=== PATIENT | female | born 1980 ===

== ENCOUNTER 2016-12-05 13:10 | Inpatient (IN) | payer MEDICAID ==
[2016-12-05 13:10] VITALS: BMI 31.8
[2016-12-05 13:18] VITALS: O2SAT 99
--- NOTE | 2016-12-05 13:37 | ED PDOC ---
- ECG O2 Sat by Pulse Oximetry: 99
--- NOTE | 2016-12-05 13:42 | ED PDOC ---
HPI: Psych/Substance Abuse Time Seen by Provider: 12/05/16 13:16 Chief Complaint (Nursing): Anxiety Chief Complaint (Provider): Anxiety History Per: Patient Additional Complaint(s): Pt. states earlier today she was walking when she suddenly developed "anxiety." Reports feeling very anxious and is unable to control her emotions and crying. Pt. states she did not take her Xanax as her psychiatrist Dr. Braxton discontinued it but she has been taking her Seroquel and her thyroid medication. Pt. is uncertain as to the source of her anxiety. Denies SI/HI, hallucinations, chest pain, SOB, numbness, tingling, fever. Past Medical History Reviewed: Historical Data, Nursing Documentation, Vital Signs Vital Signs: Last Vital Signs Temp Pulse 78 12/05/16 13:12 Resp 18 12/05/16 13:12 BP 107/76 12/05/16 13:12 Pulse Ox 99 12/05/16 13:12 - Medical History PMH: Anxiety (since 12 years old), Depression (since 12 years old), HTN, Hypothyroidism Denies: Diabetes, Hepatitis, HIV, Seizures, Sexually Transmitted Disease - Family History Family History: States: No Known Family Hx - Immunization History Hx Tetanus Toxoid Vaccination: No Hx Influenza Vaccination: No Hx Pneumococcal Vaccination: No - Home Medications Home Medications: Ambulatory Orders Medication Instructions Recorded Aspirin [Ecotrin] 81 mg PO DAILY #30 tabec 10/22/16 Atenolol [Tenormin] 25 mg PO DAILY #30 tablet 10/22/16 Divalproex [Depakote ER] 250 mg PO BID #60 ter 10/22/16 Escitalopram [Lexapro] 5 mg PO DAILY #30 tab 10/22/16 Gabapentin [Neurontin] 100 mg PO BID #60 capsule 10/22/16 Levothyroxine Sodium [Levoxyl] 137 mcg PO DAILY #30 tablet 10/22/16 Mirtazapine [Remeron] 7.5 mg PO HS #15 tab 10/22/16 QUEtiapine [SEROquel] 50 mg PO HS #30 tab 10/22/16 QUEtiapine [Seroquel] 100 mg PO BID #60 tab 10/22/16 hydrOXYzine Pamoate [Vistaril] 25 mg PO TID PRN #90 cap 02/28/17 - Allergies Allergies/Adverse Reactions: Allergies Allergy/AdvReac Type Severity Reaction Status Date / Time No Known Allergies Allergy Verified 10/23/16 14:51 Review of Systems ROS Statement: Except As Marked, All Systems Reviewed And Found Negative Cardiovascular: Positive for: Palpitations Psych: Positive for: Anxiety Physical Exam - Reviewed Nursing Documentation Reviewed: Yes Vital Signs Reviewed: Yes - Physical Exam Appears: Positive for: Well, Non-toxic, In Acute Distress (appears very anxious) Head Exam: Positive for: ATRAUMATIC, NORMAL INSPECTION, NORMOCEPHALIC Skin: Positive for: Normal Color, Warm, DRY Eye Exam: Positive for: EOMI, Normal appearance, PERRL ENT: Positive for: Normal ENT Inspection Neck: Positive for: Normal, Painless ROM Cardiovascular/Chest: Positive for: Tachycardia. Negative for: Murmur Respiratory: Positive for: CNT, Normal Breath Sounds Gastrointestinal/Abdominal: Positive for: Normal Exam, Soft. Negative for: Tenderness Back: Positive for: Normal Inspection Extremity: Positive for: Normal ROM Neurologic/Psych: Positive for: Alert, Oriented, Mood/Affect (very anxious but cooperative) - Laboratory Results Result Diagrams: 12/05/16 14:24 12/05/16 14:24 - ECG ECG: Positive for: Interpreted By Me ECG Rhythm: Positive for: Sinus Rhythm. Negative for: ST/T Changes Rate: 118 O2 Sat by Pulse Oximetry: 99 - Progress ED Course And Treament: Xanax 1mg PO given. Labs ordered. Pt. evaluated by crisis and arrangements made for admission. Disposition - Clinical Impression Clinical Impression: Anxiety - Patient ED Disposition Is Patient to be Admitted: Yes - Disposition Disposition Time: 15:20 Condition: STABLE - Pt Status Changed To: Hospital Disposition Of: Inpatient - Admit Certification Admit to Inpatient:: After my assessment, the patient will require hospitalization for at least two midnights. This is because of the severity of symptoms shown, intensity of services needed, and/or the medical risk in this patient being treated as an outpatient.
[2016-12-05 14:34] LABS: BASO # 0.1 K/uL (0.0-0.2); BASO % 0.9 % (0.0-2.0); EOS # 0.1 K/uL (0.0-0.7); EOS % 1.2 % (0.0-4.0); HEMATOCRIT 36.8 % (34.0-47.0); LYMPH # 1.5 K/uL (1.0-4.3); LYMPH % 18.3 % (20.0-40.0); MEAN CELL VOLUME 82.2 fl (81.0-99.0); MEAN CORPUSCULAR HEMOGLOBIN 27.9 pg (27.0-31.0); MEAN PLATELET VOLUME 7.3 fl (7.2-11.7); MONO # 0.5 K/uL (0.0-0.8); MONO % 6.1 % (0.0-10.0); NEUT # 6.1 K/uL (1.8-7.0); NEUT % 73.5 % (50.0-75.0); NRBC % 0.1 % (0.0-0.0); RED CELL DISTRIBUTION WIDTH 13.8 % (11.5-14.5); WHITE BLOOD COUNT 8.3 K/uL (4.8-10.8)
[2016-12-05 14:45] LABS: RBC URINE 2 /hpf (0-3); URINE BACTERIA RARE (<OCC); URINE BILIRUBIN NEGATIVE (NEGATIVE); URINE BLOOD NEGATIVE (NEGATIVE); URINE COLOR YELLOW (YELLOW); URINE GLUCOSE (UA) NEG (Normal); URINE KETONE TRACE mg/dL (NEGATIVE); URINE LEUKOCYTE ESTERASE TRACE Leu/uL (Negative); URINE PROTEIN 30 mg/dL (NEGATIVE); URINE UROBILINOGEN 0.2-1.0 mg/dL (0.2-1.0); WBC URINE 4 /hpf (0-5)
[2016-12-05 14:52] LABS: ALB/GLOB RATIO 1.5 (1.0-2.1); ALCOHOL SERUM < 10 mg/dl (0-10); ALKALINE PHOSPHATASE 115 U/L (38-126); ALT/SGPT 22 U/L (9-52); AST/SGOT 22 U/L (14-36); BILIRUBIN,TOTAL 0.4 mg/dl (0.2-1.3); BLOOD UREA NITROGEN 19 mg/dl (7-17); CALCIUM 9.7 mg/dL (8.4-10.2); CARBON DIOXIDE 21 mmol/L (22-30); CHLORIDE 104 mmol/L (98-107); GFR AFRICAN-AMERICAN > 60; GLUCOSE,RANDOM 97 mg/dL (65-105); POTASSIUM 3.9 MMOL/L (3.6-5.0); SODIUM 142 mmol/l (132-148); TOTAL PROTEIN 7.9 G/DL (6.3-8.2)
[2016-12-05 15:29] LABS: THYROID STIMULATING HORMONE 1.92 mIU/ML (0.46-4.68)
--- NOTE | 2016-12-05 15:57 | RAD ---
HISTORY: clearance COMPARISON: 08/06/2016. FINDINGS: LUNGS: No active pulmonary disease. PLEURA: No significant pleural effusion identified, no pneumothorax apparent. CARDIOVASCULAR: Normal. OSSEOUS STRUCTURES: No significant abnormalities. VISUALIZED UPPER ABDOMEN: Normal. OTHER FINDINGS: None. IMPRESSION: No active disease. No significant interval change compared to the prior examination(s).
[2016-12-05] MEDS ORDERED: Magnesium Hydroxide Susp 30 ml UD PO PRN (18:01)
[2016-12-05] MEDS ORDERED: Alum-Mag Hydrox-Simethicone Susp (30 mL) PO PRN (18:01)
[2016-12-05] MEDS ORDERED: DiphenhydrAMINE 50 mg/ml Inj IM PRN (18:01)
[2016-12-05] MEDS ORDERED: Pneumococcal 23-Valent Vaccine IM ONE (18:51)
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
[2016-12-06 10:33] LABS: BASO % 0.6 % (0.0-2.0); EOS # 0.2 K/uL (0.0-0.7); EOS % 2.7 % (0.0-4.0); HEMATOCRIT 37.1 % (34.0-47.0); LYMPH # 1.4 K/uL (1.0-4.3); LYMPH % 19.2 % (20.0-40.0); MEAN CELL VOLUME 82.9 fl (81.0-99.0); MEAN CORPUSCULAR HEMOGLOBIN 28.2 pg (27.0-31.0); MEAN CORPUSCULAR HGB CONC 34.1 g/dL (33.0-37.0); MEAN PLATELET VOLUME 7.1 fl (7.2-11.7); MONO # 0.5 K/uL (0.0-0.8); MONO % 6.2 % (0.0-10.0); NEUT # 5.3 K/uL (1.8-7.0); NEUT % 71.3 % (50.0-75.0); NRBC % 0.1 % (0.0-0.0); RED CELL DISTRIBUTION WIDTH 14.2 % (11.5-14.5); WHITE BLOOD COUNT 7.4 K/uL (4.8-10.8)
[2016-12-06 10:45] LABS: ALB/GLOB RATIO 1.3 (1.0-2.1); ALKALINE PHOSPHATASE 97 U/L (38-126); ALT/SGPT 22 U/L (9-52); AST/SGOT 17 U/L (14-36); BILIRUBIN,TOTAL 0.6 mg/dl (0.2-1.3); BLOOD UREA NITROGEN 17 mg/dl (7-17); CALCIUM 8.8 mg/dL (8.4-10.2); CARBON DIOXIDE 24 mmol/L (22-30); CHLORIDE 104 mmol/L (98-107); CHOLESTEROL 154 mg/dL (0-199); GFR AFRICAN-AMERICAN > 60; GLUCOSE,RANDOM 98 mg/dL (65-105); SODIUM 142 mmol/l (132-148); TOTAL PROTEIN 7.4 G/DL (6.3-8.2)
[2016-12-06 11:02] LABS: T4 7.46 ug/dl (5.5-11.0)
[2016-12-06 11:16] LABS: THYROID STIMULATING HORMONE 1.99 mIU/ML (0.46-4.68)
[2016-12-06] MEDS: Levothyroxine 125 MCG TAB PO SCH (11:39)
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
[2016-12-07] MEDS: Levothyroxine 125 MCG TAB PO SCH (08:30)
--- NOTE | 2016-12-07 11:13 | PCM.PYCHPN ---
Psychiatric Progress Note - Psychiatric Progress Note Patient seen today, length of contact: Patient evaluated, case discussed with team, chart reviewed Patient Chief Complaint: "I'm feeling anxious" Problems Identified/Issues Discussed: Patient reports that she continues to feel depression and very anxious. She denies adverse effects to the recent increase in Prozac. She was able to contract for safety. NO AH/VH/paranoia/delusions. She engages appropriately with staff and peers. She has been observed to be tearful on the unit with intermittent episodes of crying. Medication Change: No Medical Record Reviewed: Yes Mental Status Examination - Cognitive Function Orientation: Person, Place, Situation, Time Memory: Intact Attention: WNL Concentration: WNL Association: WNL Fund of Knowledge: [facility] Decription of patient's judgement and insights: Fair I/J - Mood Mood: Depressed, Anxious - Affect Affect: Constricted, Depressed - Speech Speech: Appropriate - Formal Thought Process Formal Thought Process: No Impairment Psychotic Thoughts and Behaviors: NO AH/VH/paranoia/delusions - Suicidal Ideation Suicidal Ideation: No - Homicidal Ideation Homicidal Ideation: No Goal/Treatment Plan - Goal/Treatment Plan Need for Continued Stay: Remain at risks for inpatient hospitalization, Severe depression anxiety Progress Toward Problem(s) and Goals/Treatment Plan: 36 yo female with history of multiple psychiatric admission, p/w worsening depression and anxiety, likely has Major Depressive Disorder, Generalized Anxiety Disorder, and Panic attacks. She would benefit from continued inpatient admission for treatment and stabilization. -Continue Prozac 20 mg PO Daily -Continue Seroquel 100 mg PO HS, will consider titrating if necessary -Continue Cogentin 2 mg PO HS -Medicine consult appreciated -No 1:1 needed at this time as the patient is able to contract for [employer] Estimated Date of D/C: 12/10/16 - Smoking Cessation Smoking Cessation Initiated: No
--- NOTE | 2016-12-08 09:02 | PCM.PYCHPN ---
Psychiatric Progress Note - Psychiatric Progress Note Patient seen today, length of contact: Patient evaluated, case discussed with team, chart reviewed Patient Chief Complaint: "I'm feeling anxious" Problems Identified/Issues Discussed: Patient reports that she continues to feel very anxious. She reports that she did not sleep well overnight. Supportive therapy provided. She denies adverse effects to the recent increase in Prozac. NO AH/VH/paranoia/delusions. She engages appropriately with staff and peers. She is less labile on the unit. Medication Change: No Medical Record Reviewed: Yes Mental Status Examination - Cognitive Function Orientation: Person, Place, Situation, Time Memory: Intact Attention: WNL Concentration: WNL Association: WNL Fund of Knowledge: [facility] Decription of patient's judgement and insights: Fair I/J - Mood Mood: Depressed, Anxious - Affect Affect: Constricted - Speech Speech: Appropriate - Formal Thought Process Formal Thought Process: No Impairment Psychotic Thoughts and Behaviors: No AH/VH/paranoia/delusions - Suicidal Ideation Suicidal Ideation: No - Homicidal Ideation Homicidal Ideation: No Goal/Treatment Plan - Goal/Treatment Plan Need for Continued Stay: Remain at risks for inpatient hospitalization, Severe depression anxiety Progress Toward Problem(s) and Goals/Treatment Plan: 36 yo female with history of multiple psychiatric admission, p/w worsening depression and anxiety, likely has Major Depressive Disorder, Generalized Anxiety Disorder, and Panic attacks. She would benefit from continued inpatient admission for treatment and stabilization. -Continue Prozac 20 mg PO Daily -Continue Seroquel 100 mg PO HS -Continue Cogentin 2 mg PO HS -Medicine consult appreciated -No 1:1 needed at this time as the patient is able to contract for [employer] Estimated Date of D/C: 12/10/16
[2016-12-08] MEDS: Levothyroxine 125 MCG TAB PO SCH (09:19)
[2016-12-09] MEDS: Levothyroxine 125 MCG TAB PO SCH (08:28)
--- NOTE | 2016-12-09 10:17 | PCM.PYCHPN ---
Psychiatric Progress Note - Psychiatric Progress Note Patient seen today, length of contact: Patient evaluated, case discussed with team, chart reviewed Patient Chief Complaint: "I'm feeling less anxious" Problems Identified/Issues Discussed: Patient reports that her anxiety and depression are improving. No acute medical complaints. Supportive therapy provided. She denies adverse effects to medications. NO AH/VH/paranoia/delusions. She engages appropriately with staff and peers. She is less labile on the unit. Medication Change: No Medical Record Reviewed: Yes Mental Status Examination - Cognitive Function Orientation: Person, Place, Situation, Time Memory: Intact Attention: WNL Concentration: WNL Association: WN Fund of Knowledge: [facility] Decription of patient's judgement and insights: Fair I/J - Mood Mood: Anxious - Affect Affect: Broad - Speech Speech: Appropriate - Formal Thought Process Formal Thought Process: No Impairment Psychotic Thoughts and Behaviors: NO AH/VH/paranoia - Suicidal Ideation Suicidal Ideation: No - Homicidal Ideation Homicidal Ideation: No Goal/Treatment Plan - Goal/Treatment Plan Need for Continued Stay: Severe depression anxiety Progress Toward Problem(s) and Goals/Treatment Plan: 36 yo female with history of multiple psychiatric admission, p/w worsening depression and anxiety, likely has Major Depressive Disorder, Generalized Anxiety Disorder, and Panic attacks. She would benefit from continued inpatient admission for treatment and stabilization. -Continue Prozac 20 mg PO Daily -Continue Seroquel 100 mg PO HS -Continue Cogentin 2 mg PO HS -Medicine consult appreciated -Likely discharge tomorrow if patient continues to improve clinically. Estimated Date of D/C: 12/10/16
[2016-12-09 16:23] VITALS: RESP 20
[2016-12-10 05:55] VITALS: BP 110/76; TEMP 97.2
[2016-12-10] MEDS: Levothyroxine 125 MCG TAB PO SCH (08:24)
[2016-12-10 08:26] VITALS: PULSE 87
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
== END 2016-12-10 16:45 | disposition home or self-care (01) | DRG 426 ==
LOC: H.ER 13:10 → H.ERHOLD 15:33 → H.STEP 17:13
PROVIDERS: ADMIT Psychiatry & Neurology Psychiatry; ATTEND Psychiatry & Neurology Psychiatry
PROC: 3E0234Z Introduction of Serum, Toxoid and Vaccine into Muscle, Percutaneous Approach (ICD-10-PCS; principal; 2016-12-05)
PROC: GZHZZZZ Group Psychotherapy (ICD-10-PCS; 2016-12-05)
PROC: GZ51ZZZ Individual Psychotherapy, Behavioral (ICD-10-PCS; 2016-12-05)
DX: F32.9 Major depressive disorder, single episode, unspecified (principal); G40.909 Epilepsy, unspecified, not intractable, without status epilepticus; I10 Essential (primary) hypertension; F41.0 Panic disorder [episodic paroxysmal anxiety]; Z87.891 Personal history of nicotine dependence; E03.9 Hypothyroidism, unspecified; Z23 Encounter for immunization

== ENCOUNTER 2016-12-24 12:34 | Inpatient (IN) | payer MEDICAID ==
[2016-12-24 12:34] VITALS: BMI 31.8
--- NOTE | 2016-12-24 12:50 | ED PDOC ---
HPI: Psych/Substance Abuse Time Seen by Provider: 12/24/16 14:07 Chief Complaint (Nursing): Psychiatric Evaluation Chief Complaint (Provider): Psychiatric Evaluation History Per: Patient History/Exam Limitations: no limitations Onset/Duration Of Symptoms: Hrs (Prior to Arrival) Additional Complaint(s): 12:37 Keisha Tripathi, 36 year old female presents to the ED on 12/24/16, complaining of feeling very anxious and is crying. The patient was picked up from her mother's job prior to arrival and states that she has been taking her medications, without relief. The patient denies any suicidal or homicidal ideations or hallucinations. Of note, the patient was previously seen and admitted last month. PMD: Jesus Olvera MD Past Medical History Reviewed: Historical Data, Nursing Documentation, Vital Signs Vital Signs: Last Vital Signs Temp 98.1 F 12/24/16 12:36 Pulse 102 H 12/24/16 12:36 Resp 30 H 12/24/16 12:36 BP 127/87 12/24/16 12:36 Pulse Ox 100 12/24/16 12:36 - Medical History PMH: Anxiety (since 12 years old), Depression (since 12 years old), HTN, Hypothyroidism Denies: Diabetes, Hepatitis, HIV, Seizures, Sexually Transmitted Disease - Family History Family History: States: Unknown Family Hx - Immunization History Hx Tetanus Toxoid Vaccination: No Hx Influenza Vaccination: No Hx Pneumococcal Vaccination: No - Home Medications Home Medications: Ambulatory Orders Medication Instructions Recorded Aspirin [Ecotrin] 81 mg PO DAILY 12/05/16 Atenolol [Tenormin] 25 mg PO DAILY 12/05/16 Gabapentin [Neurontin] 200 mg PO TID 12/05/16 Levothyroxine [Synthroid] 125 mcg PO DAILY 12/05/16 Benztropine [Cogentin] 2 mg PO HS #30 tab 12/10/16 FLUoxetine [Prozac] 20 mg PO DAILY #30 cap 12/10/16 QUEtiapine [Seroquel] 100 mg PO HS #30 tab 12/10/16 - Allergies Allergies/Adverse Reactions: Allergies Allergy/AdvReac Type Severity Reaction Status Date / Time No Known Allergies Allergy Verified 10/23/16 14:51 Review of Systems Eyes: Positive for: Other (crying) Psych: Positive for: Anxiety. Negative for: Suicidal ideation, Other (no homicidal ideation or hallucinations) Physical Exam - Reviewed Nursing Documentation Reviewed: Yes Vital Signs Reviewed: Yes - Physical Exam Appears: Positive for: Non-toxic Head Exam: Positive for: ATRAUMATIC, NORMOCEPHALIC Skin: Positive for: Normal Color, Warm, Dry Eye Exam: Positive for: Other (Crying) Neck: Positive for: Normal Cardiovascular/Chest: Positive for: Regular Rate, Rhythm, Chest Non Tender Respiratory: Positive for: Normal Breath Sounds. Negative for: Respiratory Distress Gastrointestinal/Abdominal: Positive for: Normal Exam, Soft. Negative for: Tenderness Neurologic/Psych: Positive for: Alert, Oriented (x3) - Laboratory Results Result Diagrams: 12/24/16 13:30 12/24/16 13:30 - ECG ECG Rhythm: Positive for: Sinus Rhythm (Normal) Rate: 83 O2 Sat by Pulse Oximetry: 100 (RA) Pulse Ox Interpretation: Normal Medical Decision Making Medical Decision Makin:37 Initial Impression: Patient crying and anxious but with normal breathing Initial Plan: * Crisis Evaluation * pt will be admitted for anxiety under MD Minda * Pt is medically stable at this time for admission Scribe~Attestation: Documented by Bharti Rodrigues, acting as a~zafaribe~for Bridget Alonso PA-C. Provider~Scribe~Attestation: All medical record entries made by the~Arpitwere at my direction and personally dictated by me. I have reviewed the chart and agree that the record accurately reflects my personal performance of the history, physical exam, medical decision making, and the department course for this patient. I have also personally directed, reviewed, and agree with the discharge instructions and disposition. Disposition - Clinical Impression Clinical Impression: Anxiety - Patient ED Disposition Is Patient to be Admitted: Yes - Disposition Disposition Time: 14:09 Condition: STABLE - Pt Status Changed To: Hospital Disposition Of: Inpatient - Admit Certification Admit to Inpatient:: After my assessment, the patient will require hospitalization for at least two midnights. This is because of the severity of symptoms shown, intensity of services needed, and/or the medical risk in this patient being treated as an outpatient.
[2016-12-24 13:47] LABS: BASO # 0.1 K/uL (0.0-0.2); BASO % 0.6 % (0.0-2.0); EOS # 0.1 K/uL (0.0-0.7); EOS % 1.5 % (0.0-4.0); HEMATOCRIT 36.7 % (34.0-47.0); LYMPH # 1.7 K/uL (1.0-4.3); LYMPH % 19.9 % (20.0-40.0); MEAN CELL VOLUME 81.8 fl (81.0-99.0); MEAN CORPUSCULAR HEMOGLOBIN 27.8 pg (27.0-31.0); MEAN PLATELET VOLUME 7.7 fl (7.2-11.7); MONO # 0.4 K/uL (0.0-0.8); MONO % 4.9 % (0.0-10.0); NEUT # 6.2 K/uL (1.8-7.0); NEUT % 73.1 % (50.0-75.0); NRBC % 0.1 % (0.0-0.0); RED CELL DISTRIBUTION WIDTH 14.4 % (11.5-14.5); WHITE BLOOD COUNT 8.5 K/uL (4.8-10.8)
[2016-12-24 14:01] LABS: ALB/GLOB RATIO 1.2 (1.0-2.1); ALCOHOL SERUM < 10 mg/dl (0-10); ALKALINE PHOSPHATASE 98 U/L (38-126); ALT/SGPT 23 U/L (9-52); AST/SGOT 23 U/L (14-36); BILIRUBIN,TOTAL 0.7 mg/dl (0.2-1.3); BLOOD UREA NITROGEN 16 mg/dl (7-17); CALCIUM 9.2 mg/dL (8.4-10.2); CARBON DIOXIDE 23 mmol/L (22-30); CHLORIDE 105 mmol/L (98-107); GFR AFRICAN-AMERICAN > 60; GLUCOSE,RANDOM 113 mg/dL (65-105); POTASSIUM 3.8 MMOL/L (3.6-5.0); SODIUM 139 mmol/l (132-148); TOTAL PROTEIN 7.6 G/DL (6.3-8.2)
[2016-12-24 14:04] LABS: RBC URINE 3 /hpf (0-3); URINE BACTERIA MOD (<OCC); URINE BILIRUBIN NEGATIVE (NEGATIVE); URINE BLOOD NEGATIVE (NEGATIVE); URINE COLOR YELLOW (YELLOW); URINE GLUCOSE (UA) NEG (Normal); URINE KETONE NEGATIVE (NEGATIVE); URINE LEUKOCYTE ESTERASE MOD Leu/uL (Negative); URINE PROTEIN NEGATIVE (NEGATIVE); URINE UROBILINOGEN 0.2-1.0 mg/dL (0.2-1.0); WBC URINE 14 /hpf (0-5)
[2016-12-24] MEDS ORDERED: Alum-Mag Hydrox-Simethicone Susp (30 mL) PO PRN (16:40)
[2016-12-24] MEDS ORDERED: Magnesium Hydroxide Susp 30 ml UD PO PRN (16:40)
--- NOTE | 2016-12-25 01:09 | CP.PCM.CON ---
History of Present Illness - History of Present Illness History of Present Illness: 36 yo female admitted to psyche unit because of severe anxiety. Review of Systems - Review of Systems All systems: reviewed and no additional remarkable complaints except (aside from those mentioned above 12 point system review were negative by me) Past Patient History - Infectious Disease Hx of Infectious Diseases: None - Past Social History Smoking Status: Never Smoked Chewing Tobacco Use: No Cigar Use: No Alcohol: None - CARDIAC Hx Cardiac Disorders: No - PULMONARY Hx Respiratory Disorders: No Hx Tuberculosis: No - NEUROLOGICAL Hx Neurological Disorder: No Hx Seizures: No - HEENT Hx HEENT Problems: No - RENAL Hx Chronic Kidney Disease: No - ENDOCRINE/METABOLIC Hx Hypothyroidism: Yes - HEMATOLOGICAL/ONCOLOGICAL Hx Blood Disorders: No Hx Human Immunodeficiency Virus (HIV): No - INTEGUMENTARY Hx Dermatological Problems: No - MUSCULOSKELETAL/RHEUMATOLOGICAL Hx Musculoskeletal Disorders: No - GASTROINTESTINAL Hx Gastrointestinal Disorders: No - GENITOURINARY/GYNECOLOGICAL Hx Genitourinary Disorders: No Hx Sexually Transmitted Disorders: No - PSYCHIATRIC Hx Substance Use: No - SURGICAL HISTORY Hx Surgeries: No Other/Comment: right thumb surgery/ trigger finger - ANESTHESIA Hx Anesthesia: Yes Hx Anesthesia Reactions: No Meds Allergies/Adverse Reactions: Allergies Allergy/AdvReac Type Severity Reaction Status Date / Time No Known Allergies Allergy Verified 10/23/16 14:51 - Medications Medications: Current Medications Acetaminophen (Tylenol 325mg Tab) 650 mg PO Q4 PRN PRN Reason: Pain, moderate (4-7) Al Hydrox/Mg Hydrox/Simethicone (Maalox Plus 30 Ml) 30 ml PO Q4 PRN PRN Reason: Dyspepsia Aspirin (Ecotrin) 81 mg PO DAILY [facility] Atenolol (Tenormin) 25 mg PO DAILY [facility] Benztropine Mesylate (Cogentin) 2 mg PO HS [facility] Last Admin: 12/24/16 21:27 Dose: 2 mg Diphenhydramine HCl (Benadryl) 50 mg PO Q6 PRN PRN Reason: Agitation Fluoxetine HCl (Prozac) 20 mg PO DAILY [facility] Gabapentin (Neurontin) 200 mg PO TID [facility] Last Admin: 12/24/16 17:18 Dose: 200 mg Haloperidol (Haldol) 5 mg PO Q4 PRN PRN Reason: Agitation Haloperidol Lactate (Haldol) 5 mg IM Q4 PRN PRN Reason: Agitation, Unable to Take PO Levothyroxine Sodium (Synthroid) 125 mcg PO DAILY@0630 [facility] Lorazepam (Ativan) 2 mg IM Q4 PRN PRN Reason: Anxiety/Agitation,Unable PO Lorazepam (Ativan) 2 mg IM Q6 PRN PRN Reason: Agitation Lorazepam (Ativan) 2 mg PO Q6 PRN PRN Reason: Anxiety Magnesium Hydroxide (Milk Of Magnesia) 30 ml PO HS PRN PRN Reason: Constipation Quetiapine Fumarate (Seroquel) 100 mg PO HS [facility] Last Admin: 12/24/16 21:28 Dose: 100 mg Physical Exam - Constitutional Appears: No Acute Distress - Head Exam Head Exam: ATRAUMATIC - Eye Exam Eye Exam: Normal appearance - ENT Exam ENT Exam: Mucous Membranes Moist - Neck Exam Neck exam: Negative for: Meningismus - Respiratory Exam Respiratory Exam: absent: Rales, Rhonchi, Wheezes, Respiratory Distress - Cardiovascular Exam Cardiovascular Exam: REGULAR RHYTHM, +S1, +S2 - GI/Abdominal Exam GI & Abdominal Exam: Soft. absent: Tenderness - Rectal Exam Rectal Exam: Deferred - Extremities Exam Extremities exam: Negative for: pedal edema - Back Exam Back exam: NORMAL INSPECTION - Neurological Exam Neurological exam: Alert, Oriented x3 - Psychiatric Exam Psychiatric exam: Flat Affect Results - Vital Signs Recent Vital Signs: Last Vital Signs Temp 98.1 F 12/24/16 12:36 Pulse 83 12/24/16 14:44 Resp 30 H 12/24/16 12:36 BP 127/87 12/24/16 12:36 Pulse Ox 100 12/24/16 14:09 - Labs Result Diagrams: 12/24/16 13:30 12/24/16 13:30 Assessment & Plan (1) Anxiety disorder Status: Acute Comment: psyche is managing
[2016-12-25] MEDS: Levothyroxine 125 MCG TAB PO SCH (07:11)
[2016-12-25 07:25] LABS: T4 9.96 ug/dl (5.5-11.0)
[2016-12-25 07:39] LABS: THYROID STIMULATING HORMONE 1.36 mIU/ML (0.46-4.68)
--- NOTE | 2016-12-25 11:46 | CARD ---
APPROVED REPORT EKG Measurement Heart [id number] <Conclusion> Normal sinus rhythm Normal ECG
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
[2016-12-25 20:34] LABS: RBC URINE 1 /hpf (0-3); URINE BACTERIA RARE (<OCC); URINE BILIRUBIN NEGATIVE (NEGATIVE); URINE BLOOD MODERATE (NEGATIVE); URINE COLOR STRAW (YELLOW); URINE GLUCOSE (UA) NEG (Normal); URINE KETONE NEGATIVE (NEGATIVE); URINE LEUKOCYTE ESTERASE SMALL Leu/uL (Negative); URINE PROTEIN NEGATIVE (NEGATIVE); URINE UROBILINOGEN 0.2-1.0 mg/dL (0.2-1.0); WBC URINE 5 /hpf (0-5)
[2016-12-26] MEDS: Levothyroxine 125 MCG TAB PO SCH (06:07)
--- NOTE | 2016-12-26 11:30 | PCM.PYCHPN ---
Psychiatric Progress Note - Psychiatric Progress Note Patient seen today, length of contact: discussed with team Patient Chief Complaint: i am anxious Problems Identified/Issues Discussed: no complaints of side effects with increase in the neurontin. she is calm when not meeting with staff, then she starts to wave her hand in front of her face and states she cannot breathe. she states she was so anxious that she vomited this morning. this was unwitnessed. she participates in group. Medication Change: Yes (increase hs seroquel) Medical Record Reviewed: Yes Mental Status Examination - Cognitive Function Orientation: Person, Place, Situation, Time Memory: Intact Attention: WNL Concentration: WNL Association: [facility] Fund of Knowledge: [facility] Decription of patient's judgement and insights: fair - Mood Mood: Anxious - Affect Affect: Constricted - Speech Speech: Appropriate - Formal Thought Process Formal Thought Process: No Impairment Psychotic Thoughts and Behaviors: denies a/v hallucinations - Suicidal Ideation Suicidal Ideation: No - Homicidal Ideation Homicidal Ideation: No Goal/Treatment Plan - Goal/Treatment Plan Need for Continued Stay: Remain at risks for inpatient hospitalization, Severe functional impairment Progress Toward Problem(s) and Goals/Treatment Plan: major depression, moderate panic disorder borderline personality disorder Estimated Date of D/C: 12/31/16 - Smoking Cessation Smoking Cessation Initiated: No Reason for not providing: does not smoke
[2016-12-27] MEDS: Levothyroxine 125 MCG TAB PO SCH (06:52)
--- NOTE | 2016-12-27 13:45 | PCM.PYCHPN ---
Psychiatric Progress Note - Psychiatric Progress Note Patient seen today, length of contact: discussed with team Patient Chief Complaint: my knees are weak Problems Identified/Issues Discussed: no with a variety of somatic complaints that change from time to time. she is anxious and makes dramatic efforts to communicate those anxieties to those around her. she appears to enjoy being in the hospital and being taken care of. she states she argues with her mother who wants her to become and adult. Medication Change: No ( ) Medical Record Reviewed: Yes Mental Status Examination - Cognitive Function Orientation: Person, Place, Situation, Time Memory: Intact Attention: WNL Concentration: WNL Association: [facility] Fund of Knowledge: [facility] Decription of patient's judgement and insights: fair - Mood Mood: Anxious - Affect Affect: Constricted - Speech Speech: Appropriate Additional comments: hi pitched, regressed/childlilke voice/tone - Formal Thought Process Formal Thought Process: No Impairment Psychotic Thoughts and Behaviors: denies a/v hallucinations - Suicidal Ideation Suicidal Ideation: No - Homicidal Ideation Homicidal Ideation: No Goal/Treatment Plan - Goal/Treatment Plan Need for Continued Stay: Remain at risks for inpatient hospitalization, Severe functional impairment Progress Toward Problem(s) and Goals/Treatment Plan: major depression, moderate panic disorder borderline personality disorder will continue with current treatment t/c increasing seroquel but for now will keep 150mg Estimated Date of D/C: 12/31/16
[2016-12-28] MEDS: Levothyroxine 125 MCG TAB PO SCH (06:42)
--- NOTE | 2016-12-28 09:10 | PCM.PYCHPN ---
Psychiatric Progress Note - Psychiatric Progress Note Patient seen today, length of contact: discussed with team Patient Chief Complaint: pt has remained very somatically preoccupied and c/o breathing trouble abd weakness of legs and focussed on her body DSM 5 Symptoms Update: major depression Medication Change: No ( ) Medical Record Reviewed: Yes Mental Status Examination - Cognitive Function Orientation: Person, Place, Situation, Time Memory: Intact Attention: WNL Concentration: WNL Association: WNL Fund of Knowledge: WNL - Mood Mood: Anxious - Affect Affect: Constricted - Speech Speech: Appropriate - Formal Thought Process Formal Thought Process: No Impairment - Suicidal Ideation Suicidal Ideation: No - Homicidal Ideation Homicidal Ideation: No Goal/Treatment Plan - Goal/Treatment Plan Need for Continued Stay: Remain at risks for inpatient hospitalization, Severe functional impairment Progress Toward Problem(s) and Goals/Treatment Plan: will further titrate meds ro stabilize depression and engage in therapy Estimated Date of D/C: 12/31/16
[2016-12-28 13:27] VITALS: RESP 20
[2016-12-29] MEDS: Levothyroxine 125 MCG TAB PO SCH (06:15)
--- NOTE | 2016-12-29 15:10 | PCM.PYCHPN ---
Psychiatric Progress Note - Psychiatric Progress Note Patient seen today, length of contact: discussed with team Patient Chief Complaint: pt has remained very somatically preoccupied and c/o breathing trouble abd weakness of legs and focussed on her body reassurance provided and encouraged to comply with meds . DSM 5 Symptoms Update: major depression Medication Change: No ( ) Medical Record Reviewed: Yes Mental Status Examination - Cognitive Function Orientation: Person, Place, Situation, Time Memory: Intact Attention: WNL Concentration: WNL Association: WNL Fund of Knowledge: WNL - Mood Mood: Anxious - Affect Affect: Constricted - Speech Speech: Appropriate - Formal Thought Process Formal Thought Process: No Impairment - Suicidal Ideation Suicidal Ideation: No - Homicidal Ideation Homicidal Ideation: No Goal/Treatment Plan - Goal/Treatment Plan Need for Continued Stay: Remain at risks for inpatient hospitalization, Severe functional impairment Progress Toward Problem(s) and Goals/Treatment Plan: will further titrate meds ro stabilize depression and engage in therapy Estimated Date of D/C: 12/31/16
[2016-12-30] MEDS: Levothyroxine 125 MCG TAB PO SCH (07:54)
--- NOTE | 2016-12-30 12:35 | PCM.PYCHPN ---
Psychiatric Progress Note - Psychiatric Progress Note Patient seen today, length of contact: discussed with team Patient Chief Complaint: i'm anxious Problems Identified/Issues Discussed: continues to have somatic complaints, anxiety complaints. dramatic and attention seeking. Medication Change: No ( ) Medical Record Reviewed: Yes Mental Status Examination - Cognitive Function Orientation: Person, Place, Situation, Time Memory: Intact Attention: WNL Concentration: WNL Association: WNL Fund of Knowledge: WNL - Mood Mood: Anxious - Affect Affect: Constricted - Speech Speech: Appropriate - Formal Thought Process Formal Thought Process: No Impairment - Suicidal Ideation Suicidal Ideation: No - Homicidal Ideation Homicidal Ideation: No Goal/Treatment Plan - Goal/Treatment Plan Need for Continued Stay: Remain at risks for inpatient hospitalization, Severe functional impairment Progress Toward Problem(s) and Goals/Treatment Plan: major depression, moderate panic disorder borderline personality disorder will continue with current treatment no medication changes disposition planning Estimated Date of D/C: 12/31/16
[2016-12-30] MEDS ORDERED: Benzocaine/Menthol (Cepacol) Lozenge PO PRN (13:08)
[2016-12-30 18:02] VITALS: O2SAT 100
[2016-12-31] MEDS: Levothyroxine 125 MCG TAB PO SCH (08:08)
[2016-12-31 08:42] VITALS: BP 145/105; PULSE 102
[2016-12-31 09:29] VITALS: TEMP 98.5
--- NOTE | 2016-12-31 09:32 | PCM.PYCHDC ---
Mental Status Examination - Mental Status Examination Orientation: Person, Place, Situation, Time Memory: Intact Mood: Depressed, Anxious Affect: Broad Speech: Appropriate Attention: WNL Concentration: WNL Association: WNL Fund of Knowledge: WNL Formal Thought Process: No Impairment Description of patient's judgement and insight: fair Psychotic Thoughts and Behaviors: denies a/v hallucinations Suicidal Ideation: No Current Homicidal Ideation?: No Discharge Summary - Discharge Note Reason for Hospitalization: pt admitted with severe anxiety Psychiatric History (includes Medical, Family, Personal Hx): history of admission to [facility] for anxiety/mood symptoms Consultations:: List each consultation separately and include: 1. Reason for request. 2. Findings. 3. Follow-up Consultations: seen by the hospitalist Summary of Hospital Course include:: 1. Description of specific treatment plan utilized for patients during their course of treatmen. 2. Summarize the time- course for resolution of acute symptoms and/or regressed behaviors. 3. Describe issues identified and worked on during hospitalization. 4. Describe medication utilized. 5. Describe medical problems identified and treated. 6. Reassessment of suicide risk Summary of Hospital Course: pt with 2 recent previous admissions. she is c/o anxiety. feels that no medications have helped her. she states she is going to a php program every day and trying to use coping skills. she wakes up everyday feeling like she cannot breathe. she states she lives with her mother and that they are constantly fighting, which is a stress for her. she is feeling hopeless, but she is denying any suicidal or homicidal thoughts. admitted to [facility] and oriented to the unit. placed on routine safety protocols. seen by the hospitalist. was started on medications to target her symptoms. she attended groups and participated in treatment. she was calm and with appropriate peer interactions. anxiety increased when she was in presence of staff and pt seemed to seek out attention from staff for her symptoms and seems invested in maintaining her anxious state with treatment providers. her sleep improved. she was denying any suicidal or homicidal thoughts at time of discharge. she was agreeing to follow up with aftercare. - Final Diagnosis (DSM 5) Condition upon Discharge: STABLE DSM 5: major depression recurrent moderate anxiety disorder Disposition: HOME/ ROUTINE Follow-up Treatment Plan: follow up with aftercare as directed take medications as prescribed do not use alcohol, tobacco or other illicit substances call 911 if any suicidal or homicidal thoughts - Smoking Cessation Smoking Cessation Medication prescribed: No Reason for not providing: declines - Antipsychotic Medications Pt discharged on 2 or more routine antipsychotic medications: No
== END 2016-12-31 17:25 | disposition home or self-care (01) | DRG 430 ==
LOC: H.ER 12:34 → H.ERHOLD 14:08 → H.PSYCH 15:12
PROVIDERS: ADMIT Psychiatry & Neurology Psychiatry; ATTEND Psychiatry & Neurology Psychiatry
PROC: GZ51ZZZ Individual Psychotherapy, Behavioral (ICD-10-PCS; 2016-12-24)
PROC: GZHZZZZ Group Psychotherapy (ICD-10-PCS; principal; 2016-12-26)
DX: F33.2 Major depressive disorder, recurrent severe without psychotic features (principal); I10 Essential (primary) hypertension; E03.9 Hypothyroidism, unspecified; F60.3 Borderline personality disorder; F41.0 Panic disorder [episodic paroxysmal anxiety]

== ENCOUNTER 2017-04-29 11:58 | Emergency (ER) | payer MEDICAID ==
[2017-04-29 11:58] VITALS: BMI 31.8
--- NOTE | 2017-04-29 12:20 | ED PDOC ---
Arrival/HPI - General Chief Complaint: Anxiety Time Seen by Provider: 04/29/17 12:11 - History of Present Illness Narrative History of Present Illness (Text): 04/29/17 12:19 Patient is a 37 y/o F with hx of anxiety, with psychiatric follow-up, presenting with anxiety. Patient reports that when she gets really anxious she gets nauseous and vomits. She reports that she had 2 episodes of vomiting this morning. She reports that she is feeling anxious because she has an upcoming trip to [place]. She denies homicidal or suicidal ideation and reports that she does not want to see psych today because she has a psychiatrist that she is going to call as soon as she is discharged. She reports that she is prescribed ativan and is wondering if she should take it. She denies abdominal pain, fever , dysuria, constipation or diarrhea. Past Medical History - Infectious Disease Hx of Infectious Diseases: None - Cardiac Hx Cardiac Disorders: No - Pulmonary Hx Respiratory Disorders: No Hx Tuberculosis: No - Neurological Hx Neurological Disorder: No Hx Seizures: No - HEENT Hx HEENT Disorder: No - Renal Hx Renal Disorder: No - Endocrine/Metabolic Hx Hypothyroidism: Yes - Hematological/Oncological Hx Blood Disorders: No - Integumentary Hx Dermatological Disorder: No - Musculoskeletal/Rheumatological Hx Musculoskeletal Disorders: No - Gastrointestinal Hx Gastrointestinal Disorders: No - Genitourinary/Gynecological Hx Genitourinary Disorders: No Hx Sexually Transmitted Diseases: No - Psychiatric Hx Substance Use: No - Surgical History Other/Comment: right thumb surgery/ trigger finger - Anesthesia Hx Anesthesia: Yes Hx Anesthesia Reactions: No Family/Social History Family/Social History: No Known Family HX Smoking Status: Never Smoked Hx Alcohol Use: No Hx Substance Use: No Allergies/Home Meds Allergies/Adverse Reactions: Allergies No Known Allergies Allergy (Verified 10/23/16 14:51) Review of Systems - Review of Systems Constitutional: absent: Fatigue, Weight Change, Fevers Eyes: absent: Vision Changes ENT: absent: Hearing Changes Respiratory: absent: SOB, Cough, Sputum, Wheezing Cardiovascular: absent: Chest Pain, Palpitations, Edema, Calf Pain, BAUTISTA, Orthopnea, Syncope Gastrointestinal: Nausea, Vomiting. absent: Abdominal Pain, Constipation, Diarrhea, Appetite Changes, Hematochezia, Hematemesis Genitourinary Female: absent: Dysuria, Frequency, Hematuria, Urine Output Changes, Vaginal Bleeding, Vaginal Discharge Musculoskeletal: absent: Arthralgias Skin: absent: Rash Neurological: absent: Headache, Dizziness, Focal Weakness, Gait Changes, Speech Changes Psychiatric: Anxiety. absent: Depression, Suicidal Ideation Physical Exam Vital Signs Temp Pulse Resp BP Pulse Ox 04/29/17 12:34 97.6 F 78 19 128/78 98 04/29/17 12:02 99.3 F 94 H 18 120/70 99 Temperature: Afebrile Blood Pressure: Normal Pulse: Regular Respiratory Rate: Normal Appearance: Positive for: Well-Appearing, Non-Toxic, Comfortable Pain Distress: None Mental Status: Positive for: Alert and Oriented X 3 - Systems Exam Head: Present: Atraumatic, Normocephalic Pupils: Present: PERRL Extroacular Muscles: Present: EOMI Conjunctiva: Present: Normal Mouth: Present: Moist Mucous Membranes Neck: Present: Normal Range of Motion Respiratory/Chest: Present: Clear to Auscultation, Good Air Exchange. No: Respiratory Distress, Accessory Muscle Use Cardiovascular: Present: Regular Rate and Rhythm, Normal S1, S2. No: Murmurs Abdomen: No: Tenderness, Distention, Rebound, Guarding Upper Extremity: Present: Normal Inspection Lower Extremity: Present: Normal Inspection Psychiatric: Present: Alert, Oriented x 3, Anxious. No: Depressed Mood, Suicidal Ideation, Homicidal Ideation, Delusional Medical Decision Making ED Course and Treatment: 04/29/17 12:46 Patient reports that this is her baseline anxiety and reports that she often vomits when anxious. She is tolerating po with soft NT/ND abdomen. She has outpatient medication and outpatient follow-up. She denies HI/SI, VH or AH and reports that she does not want to speak to psych today. She reports that she will follow-up. Disposition/Present on Arrival - Present on Arrival Any Indicators Present on Arrival: No - Disposition Have Diagnosis and Disposition been Completed?: Yes Diagnosis: Anxiety Disposition: HOME/ ROUTINE Disposition Time: 12:19 Patient Plan: Discharge Condition: GOOD Discharge Instructions (ExitCare): Anxiety (ED) Additional Instructions: Take medication as prescribed. Follow-up with your psychiatrist. Return with any worsening symptoms. Forms: [employer] (Djiboutian)
[2017-04-29 12:35] VITALS: BP 128/78; PULSE 78; RESP 19; TEMP 97.6; O2SAT 98
== END 2017-04-29 12:45 | disposition home or self-care (01) ==
LOC: H.ER 11:58
DX: F41.9 Anxiety disorder, unspecified (principal)

== ENCOUNTER 2017-05-05 12:43 | Observation (INO) | payer MEDICAID ==
[2017-05-05 12:44] VITALS: BMI 31.8
--- NOTE | 2017-05-05 13:46 | ED PDOC ---
HPI: Psych/Substance Abuse Time Seen by Provider: 05/05/17 12:49 Chief Complaint (Nursing): Anxiety Chief Complaint (Provider): Anxiety History Per: Patient History/Exam Limitations: no limitations Onset/Duration Of Symptoms: Mins Current Symptoms Are (Timing): Still Present Suicide/Self Injury Attempted (Context): None Associated Symptoms: Anxiety. denies: Suicidal Thoughts, Suicidal Plan Additional Complaint(s): The patient is a 37yo female, with past medical history of anxiety, presents to the ED via EMS for evaluation of anxiety. Patient reports she was at the dentist earlier today for evaluation of right upper toothache and when she sat on the chair to be examined, she developed rapid breathing and felt as if "something was going to happen." She denies taking ativan today; patient also denies any chest pain, suicidal ideation or homicidal ideation, hallucinations. She offers no additional medical complaints. Past Medical History Reviewed: Historical Data, Nursing Documentation, Vital Signs Vital Signs: Last Vital Signs Temp 97.4 F L 05/05/17 12:45 Pulse 96 H 05/05/17 12:45 Resp 28 H 05/05/17 12:45 BP 143/104 H 05/05/17 12:45 Pulse Ox 99 05/05/17 12:45 - Medical History PMH: Anxiety, Depression, HTN, Hypothyroidism Denies: Diabetes, Hepatitis, HIV, Chronic Kidney Disease, Seizures, Sexually Transmitted Disease - Surgical History Surgical History: No Surg Hx - Family History Family History: States: Unknown Family Hx - Immunization History Hx Tetanus Toxoid Vaccination: No Hx Influenza Vaccination: No Hx Pneumococcal Vaccination: No - Home Medications Home Medications: Ambulatory Orders Medication Instructions Recorded Aspirin [Ecotrin] 81 mg PO DAILY #30 12/31/16 Atenolol [Tenormin] 25 mg PO DAILY #30 12/31/16 Benztropine [Cogentin] 2 mg PO HS #30 tab 12/31/16 DiphenhydrAMINE [Benadryl] 50 mg PO Q6 PRN #30 cap 12/31/16 FLUoxetine [Prozac] 20 mg PO DAILY #30 cap 12/31/16 Gabapentin [Neurontin] 300 mg PO TID #90 cap 12/31/16 Levothyroxine [Synthroid] 125 mcg PO DAILY #30 12/31/16 QUEtiapine [Seroquel] 100 mg PO HS #30 tab 12/31/16 - Allergies Allergies/Adverse Reactions: Allergies Allergy/AdvReac Type Severity Reaction Status Date / Time No Known Allergies Allergy Verified 10/23/16 14:51 Review of Systems ROS Statement: Except As Marked, All Systems Reviewed And Found Negative Cardiovascular: Negative for: Chest Pain Respiratory: Negative for: Shortness of Breath Psych: Positive for: Anxiety. Negative for: Suicidal ideation Physical Exam - Reviewed Nursing Documentation Reviewed: Yes Vital Signs Reviewed: Yes - Physical Exam Appears: Positive for: Non-toxic, Uncomfortable (very anxious but is easily consolable) Head Exam: Positive for: ATRAUMATIC, NORMAL INSPECTION, NORMOCEPHALIC Skin: Positive for: Normal Color Eye Exam: Positive for: Normal appearance Neck: Positive for: Normal Cardiovascular/Chest: Positive for: Regular Rate, Rhythm Respiratory: Positive for: Normal Breath Sounds. Negative for: Respiratory Distress Gastrointestinal/Abdominal: Positive for: Normal Exam Back: Positive for: Normal Inspection Extremity: Positive for: Normal ROM. Negative for: Deformity, Swelling Neurologic/Psych: Positive for: Alert, Oriented - Laboratory Results Result Diagrams: 05/05/17 14:30 05/05/17 14:30 - ECG O2 Sat by Pulse Oximetry: 99 (RA) Pulse Ox Interpretation: Normal Medical Decision Making Medical Decision Making: Time: 1250 Impression: Anxiety, psychiatric evaluation -- Labs -- Ativan 1mg PO -- CXR Reassess Scribe Attestation: Documented by Carlee Reddy acting as a scribe for REZA Aj Provider Attestation: All medical record entries made by the Scribe were at my direction and personally dictated by me. I have reviewed the chart and agree that the record accurately reflects my personal performance of the history, physical exam, medical decision making, and the department course for this patient. I have also personally directed, reviewed, and agree with the discharge instructions and disposition. ED OBSERVATION Discharge: Yes Date of observation admission: 05/05/17 Time of observation admission: 13:07 - Observation admission statement Patient is being placed in observation because:: anxiety - Progress Note Progress Note: 05/05/17 14:47 Pt. evaluated by web worker who spoke with Dr. Perla and cleared pt. for discharge. Pending labs. 05/05/17 16:26 On re-evaluation, pt. seen lying down comfortably and in no distress. Pt. is calm. Vital signs improved. Urine culture sent. Labs reviewed with patient. Disposition - Clinical Impression Clinical Impression: Anxiety, UTI (urinary tract infection) - Patient ED Disposition Is Patient to be Admitted: No - Disposition Disposition: Routine/Home Disposition Time: 16:27 Condition: IMPROVED
[2017-05-05 14:49] LABS: BASO # 0.1 K/uL (0.0-0.2); BASO % 0.9 % (0.0-2.0); EOS # 0.1 K/uL (0.0-0.7); EOS % 1.7 % (0.0-4.0); HEMATOCRIT 36.5 % (34.0-47.0); LYMPH # 1.6 K/uL (1.0-4.3); LYMPH % 19.5 % (20.0-40.0); MEAN CELL VOLUME 79.1 fl (81.0-99.0); MEAN CORPUSCULAR HEMOGLOBIN 25.8 pg (27.0-31.0); MEAN CORPUSCULAR HGB CONC 32.6 g/dL (33.0-37.0); MEAN PLATELET VOLUME 7.5 fl (7.2-11.7); MONO # 0.5 K/uL (0.0-0.8); MONO % 6.3 % (0.0-10.0); NEUT # 5.7 K/uL (1.8-7.0); NEUT % 71.6 % (50.0-75.0); NRBC % 0.1 % (0.0-0.0)
[2017-05-05 15:02] LABS: URINE BACTERIA OCC (<OCC); URINE BILIRUBIN NEGATIVE (NEGATIVE); URINE BLOOD MODERATE (NEGATIVE); URINE COLOR YELLOW (YELLOW); URINE GLUCOSE (UA) NEG (Normal); URINE KETONE NEGATIVE (NEGATIVE); URINE LEUKOCYTE ESTERASE LARGE Leu/uL (Negative); URINE PROTEIN NEGATIVE (NEGATIVE); URINE UROBILINOGEN 0.2-1.0 mg/dL (0.2-1.0)
[2017-05-05 15:03] LABS: RBC URINE 23 /hpf (0-3); WBC URINE 25 /hpf (0-5)
[2017-05-05 15:05] LABS: ALB/GLOB RATIO 1.4 (1.0-2.1); ALCOHOL SERUM < 10 mg/dl (0-10); ALKALINE PHOSPHATASE 102 U/L (38-126); ALT/SGPT 26 U/L (9-52); AST/SGOT 19 U/L (14-36); BILIRUBIN,TOTAL 0.3 mg/dl (0.2-1.3); BLOOD UREA NITROGEN 13 mg/dl (7-17); CALCIUM 9.1 mg/dL (8.4-10.2); CARBON DIOXIDE 25 mmol/L (22-30); CHLORIDE 105 mmol/L (98-107); GFR AFRICAN-AMERICAN > 60; GLUCOSE,RANDOM 95 mg/dL (65-105); POTASSIUM 4.1 MMOL/L (3.6-5.0); SODIUM 142 mmol/l (132-148); TOTAL PROTEIN 7.7 G/DL (6.3-8.2)
--- NOTE | 2017-05-05 15:44 | RAD ---
HISTORY: Shortness of breath. COMPARISON: 12/05/2016 FINDINGS: LUNGS: No active pulmonary disease. PLEURA: No significant pleural effusion identified, no pneumothorax apparent. CARDIOVASCULAR: No radiographic findings to suggest acute or significant cardiovascular disease. OSSEOUS STRUCTURES: No significant abnormalities. VISUALIZED UPPER ABDOMEN: Normal. OTHER FINDINGS: None. IMPRESSION: No active disease. No significant interval change compared to the prior examination(s).
[2017-05-05 16:15] VITALS: BP 112/70; PULSE 70; RESP 18; TEMP 98
[2017-05-05 16:27] VITALS: O2SAT 99
--- NOTE | 2017-05-06 08:52 | CARD ---
APPROVED REPORT EKG Measurement Heart [id number] <Conclusion> Normal sinus rhythm Normal ECG
== END 2017-05-05 16:51 | disposition home or self-care (01) ==
LOC: H.ER 12:43 → H.EROBSV 13:07
PROVIDERS: ADMIT Emergency Medicine; ATTEND Emergency Medicine
DX: F41.9 Anxiety disorder, unspecified (principal); E03.9 Hypothyroidism, unspecified; I10 Essential (primary) hypertension; K08.89 Other specified disorders of teeth and supporting structures; N39.0 Urinary tract infection, site not specified; Z79.82 Long term (current) use of aspirin; Z79.899 Other long term (current) drug therapy
CPT/HCPCS: 71010; 80053; 80320; 80324; 80345; 80346; 80349; 80353; 80358; 80361; 81003; 81025; 83992; 85025; 87086; 93005; 99282; G0378

== ENCOUNTER 2017-05-05 17:11 | Emergency (ER) | payer MEDICAID ==
[2017-05-05 17:11] VITALS: BMI 31.8
[2017-05-05 17:18] VITALS: BP 118/67; PULSE 91; RESP 20; TEMP 98.1; O2SAT 96
--- NOTE | 2017-05-05 18:06 | ED PDOC ---
HPI: Psych/Substance Abuse Time Seen by Provider: 05/05/17 17:16 Chief Complaint (Nursing): Anxiety Chief Complaint (Provider): Anxiety History Per: Patient, EMS History/Exam Limitations: no limitations Onset/Duration Of Symptoms: Mins Current Symptoms Are (Timing): Still Present Suicide/Self Injury Attempted (Context): None Modifying Factor(s): None Associated Symptoms: Anxiety Additional Complaint(s): The patient is a37yo female, brought to the ED for evaluation s/p patient was found crying outside on the sidewalk and bystanders called EMS. The patient was just discharged from this ED for same complaint, was cleared by Dr. Meyers. The patient is complaining of anxiety but denies any chest pain, shortness of breath , suicidal ideation, homicidal ideation and hallucinations. Past Medical History Reviewed: Historical Data, Nursing Documentation, Vital Signs Vital Signs: Last Vital Signs Temp 98.1 F 05/05/17 17:16 Pulse 91 H 05/05/17 17:16 Resp 20 05/05/17 17:16 BP 118/67 05/05/17 17:16 Pulse Ox 96 05/05/17 17:16 - Medical History PMH: Anxiety, Depression, HTN, Hypothyroidism Denies: Diabetes, Hepatitis, HIV, Chronic Kidney Disease, Seizures, Sexually Transmitted Disease - Surgical History Surgical History: No Surg Hx - Family History Family History: States: Unknown Family Hx - Immunization History Hx Tetanus Toxoid Vaccination: No Hx Influenza Vaccination: No Hx Pneumococcal Vaccination: No - Home Medications Home Medications: Ambulatory Orders Medication Instructions Recorded Aspirin [Ecotrin] 81 mg PO DAILY #30 12/31/16 Atenolol [Tenormin] 25 mg PO DAILY #30 12/31/16 Benztropine [Cogentin] 2 mg PO HS #30 tab 12/31/16 DiphenhydrAMINE [Benadryl] 50 mg PO Q6 PRN #30 cap 12/31/16 FLUoxetine [Prozac] 20 mg PO DAILY #30 cap 12/31/16 Gabapentin [Neurontin] 300 mg PO TID #90 cap 12/31/16 Levothyroxine [Synthroid] 125 mcg PO DAILY #30 12/31/16 QUEtiapine [Seroquel] 100 mg PO HS #30 tab 12/31/16 Nitrofurantoin Macrocrystals 1 cap PO BID #14 cap 05/05/17 [Macrobid] - Allergies Allergies/Adverse Reactions: Allergies Allergy/AdvReac Type Severity Reaction Status Date / Time No Known Allergies Allergy Verified 10/23/16 14:51 Review of Systems ROS Statement: Except As Marked, All Systems Reviewed And Found Negative Cardiovascular: Negative for: Chest Pain Respiratory: Negative for: Shortness of Breath Psych: Positive for: Anxiety. Negative for: Suicidal ideation Physical Exam - Reviewed Nursing Documentation Reviewed: Yes Vital Signs Reviewed: Yes - Physical Exam Appears: Positive for: Non-toxic, No Acute Distress Head Exam: Positive for: ATRAUMATIC, NORMAL INSPECTION, NORMOCEPHALIC Skin: Positive for: Normal Color Eye Exam: Positive for: Normal appearance, EOMI, PERRL Neck: Positive for: Normal, Supple Cardiovascular/Chest: Positive for: Regular Rate, Rhythm Respiratory: Positive for: Normal Breath Sounds. Negative for: Accessory Muscle Use, Respiratory Distress Gastrointestinal/Abdominal: Positive for: Normal Exam Back: Positive for: Normal Inspection Extremity: Positive for: Normal ROM. Negative for: Deformity, Swelling Neurologic/Psych: Positive for: Alert, Oriented, Mood/Affect (when patient is alone in room, she is crying and in pain. When being talked to, patient is calm , cooperative and pleasant.). Negative for: Motor/Sensory Deficits - ECG O2 Sat by Pulse Oximetry: 96 (RA) Pulse Ox Interpretation: Normal - Progress ED Course And Treament: Pt. evaluated by crisis and cleared by pt. for discharge again. Medical Decision Making Medical Decision Making: Time: 1720 Impression: Crisis evaluation, anxiety Plan: -- Crisis eval Reassess Scribe Attestation: Documented by Carlee Reddy acting as a scribe for REZA Aj Provider Attestation: All medical record entries made by the Scribe were at my direction and personally dictated by me. I have reviewed the chart and agree that the record accurately reflects my personal performance of the history, physical exam, medical decision making, and the department course for this patient. I have also personally directed, reviewed, and agree with the discharge instructions and disposition. Disposition - Clinical Impression Clinical Impression: Anxiety - Patient ED Disposition Is Patient to be Admitted: No - Disposition Disposition: Routine/Home Disposition Time: 18:25 Condition: STABLE Instructions: Anxiety (ED) Forms: [employer] (Turkmen) Print Language: WOLOF
== END 2017-05-05 18:37 | disposition home or self-care (01) ==
LOC: H.ER 17:11
DX: F41.9 Anxiety disorder, unspecified (principal); Z00.8 Encounter for other general examination

== ENCOUNTER 2017-06-19 16:53 | Emergency (ER) | payer MEDICAID ==
[2017-06-19 16:53] VITALS: BMI 31.8
[2017-06-19 17:01] VITALS: BP 135/79; RESP 20; TEMP 98.2; O2SAT 100
--- NOTE | 2017-06-19 18:00 | ED PDOC ---
HPI: General Adult Time Seen by Provider: 06/19/17 17:07 Chief Complaint (Nursing): Anxiety Chief Complaint (Provider): anxiety History Per: Patient History/Exam Limitations: no limitations Additional Complaint(s): 37yoF in ED for eval of anxiety-states that she started wrok today and felt work triggered her anxiety attack. states the has an appointment with a new psychiatrist and group therapy this month. did not take her medication (pysch ) today, but states she stopped because she felt it wasn't helping her. She admits to hearing voices, but without SI/HI. PT states she now feels calm while being in ER and not requesting any medication at this time. Past Medical History Reviewed: Historical Data, Nursing Documentation, Vital Signs Vital Signs: Last Vital Signs Temp 98.2 F 06/19/17 16:55 Pulse 112 H 06/19/17 16:55 Resp 20 06/19/17 16:55 BP 135/79 06/19/17 16:55 Pulse Ox 100 06/19/17 16:55 - Medical History PMH: Anxiety, Depression, HTN, Hypothyroidism Denies: Diabetes, Hepatitis, HIV, Chronic Kidney Disease, Seizures, Sexually Transmitted Disease - Family History Family History: States: Unknown Family Hx - Immunization History Hx Tetanus Toxoid Vaccination: No Hx Influenza Vaccination: No Hx Pneumococcal Vaccination: No - Home Medications Home Medications: Ambulatory Orders Medication Instructions Recorded Aspirin [Ecotrin] 81 mg PO DAILY #30 12/31/16 Atenolol [Tenormin] 25 mg PO DAILY #30 12/31/16 Benztropine [Cogentin] 2 mg PO HS #30 tab 12/31/16 DiphenhydrAMINE [Benadryl] 50 mg PO Q6 PRN #30 cap 12/31/16 FLUoxetine [Prozac] 20 mg PO DAILY #30 cap 12/31/16 Gabapentin [Neurontin] 300 mg PO TID #90 cap 12/31/16 Levothyroxine [Synthroid] 125 mcg PO DAILY #30 12/31/16 QUEtiapine [Seroquel] 100 mg PO HS #30 tab 12/31/16 Nitrofurantoin Macrocrystals 1 cap PO BID #14 cap 05/05/17 [Macrobid] - Allergies Allergies/Adverse Reactions: Allergies Allergy/AdvReac Type Severity Reaction Status Date / Time No Known Allergies Allergy Verified 03/01/17 14:51 Review of Systems ROS Statement: Except As Marked, All Systems Reviewed And Found Negative Psych: Positive for: Depression Physical Exam - Reviewed Nursing Documentation Reviewed: Yes Vital Signs Reviewed: Yes - Physical Exam Appears: Positive for: Well, Non-toxic, No Acute Distress Skin: Positive for: Normal Color, Warm, DRY Eye Exam: Positive for: Normal appearance Cardiovascular/Chest: Positive for: Regular Rate, Rhythm Respiratory: Positive for: CNT, Normal Breath Sounds Neurologic/Psych: Positive for: Alert, Oriented, Mood/Affect (crying intailly in ER-but was able to be verbally redirected and now calm) - ECG O2 Sat by Pulse Oximetry: 100 Medical Decision Making Medical Decision Making: pt was evaluated by crisis and cleared for d./c with anxiety under [facility], PT feels comfortable to go home. Disposition - Clinical Impression Clinical Impression: Anxiety - Patient ED Disposition Is Patient to be Admitted: No Counseled Patient/Family Regarding: Diagnosis, Need For Followup - Disposition Disposition: Routine/Home Disposition Time: 18:01 Condition: IMPROVED Instructions: Anxiety (ED)
[2017-06-19 18:22] VITALS: PULSE 94
== END 2017-06-19 18:06 | disposition home or self-care (01) ==
LOC: H.ER 16:53
DX: F41.9 Anxiety disorder, unspecified (principal); E03.9 Hypothyroidism, unspecified; F32.9 Major depressive disorder, single episode, unspecified; I10 Essential (primary) hypertension; Z79.82 Long term (current) use of aspirin

== ENCOUNTER 2017-07-01 17:38 | Emergency (ER) | payer MEDICAID ==
[2017-07-01 17:39] VITALS: BMI 31.8
[2017-07-01 17:52] VITALS: BP 135/88; PULSE 106; RESP 16; TEMP 98; O2SAT 100
--- NOTE | 2017-07-01 18:02 | ED PDOC ---
HPI: Psych/Substance Abuse Time Seen by Provider: 07/01/17 17:52 Chief Complaint (Nursing): Psychiatric Evaluation Chief Complaint (Provider): anxiety History Per: Patient Past Medical History Vital Signs: Last Vital Signs Temp 98.0 F 07/01/17 17:49 Pulse 106 H 07/01/17 17:49 Resp 16 07/01/17 17:49 BP 135/88 07/01/17 17:49 Pulse Ox 100 07/01/17 17:49 - Medical History PMH: Anxiety, Depression, HTN, Hypothyroidism Denies: Diabetes, Hepatitis, HIV, Chronic Kidney Disease, Seizures, Sexually Transmitted Disease - Family History Family History: States: Unknown Family Hx - Immunization History Hx Tetanus Toxoid Vaccination: No Hx Influenza Vaccination: No Hx Pneumococcal Vaccination: No - Home Medications Home Medications: Ambulatory Orders Medication Instructions Recorded Aspirin [Ecotrin] 81 mg PO DAILY #30 12/31/16 Atenolol [Tenormin] 25 mg PO DAILY #30 12/31/16 Benztropine [Cogentin] 2 mg PO HS #30 tab 12/31/16 DiphenhydrAMINE [Benadryl] 50 mg PO Q6 PRN #30 cap 12/31/16 FLUoxetine [Prozac] 20 mg PO DAILY #30 cap 12/31/16 Gabapentin [Neurontin] 300 mg PO TID #90 cap 12/31/16 Levothyroxine [Synthroid] 125 mcg PO DAILY #30 12/31/16 QUEtiapine [Seroquel] 100 mg PO HS #30 tab 12/31/16 Nitrofurantoin Macrocrystals 1 cap PO BID #14 cap 05/05/17 [Macrobid] - Allergies Allergies/Adverse Reactions: Allergies Allergy/AdvReac Type Severity Reaction Status Date / Time No Known Allergies Allergy Verified 07/01/17 17:49 - ECG O2 Sat by Pulse Oximetry: 100 Disposition - Disposition
== END 2017-07-01 18:34 | disposition left against medical advice (07) ==
LOC: H.ER 17:38
DX: Z02.89 Encounter for other administrative examinations (principal)

== ENCOUNTER 2017-07-03 11:43 | Emergency (ER) | payer MEDICAID ==
[2017-07-03 11:43] VITALS: BMI 31.8
[2017-07-03 11:49] VITALS: BP 142/87; PULSE 116; RESP 20; TEMP 98; O2SAT 99
--- NOTE | 2017-07-03 12:25 | ED PDOC ---
- ECG O2 Sat by Pulse Oximetry: 99 (RA) Pulse Ox Interpretation: Normal Disposition - Disposition Forms: [employer] (Indonesian)
--- NOTE | 2017-07-03 12:28 | ED PDOC ---
HPI: Psych/Substance Abuse Time Seen by Provider: 07/03/17 12:04 Chief Complaint (Nursing): Anxiety Chief Complaint (Provider): Anxiety History Per: Patient History/Exam Limitations: no limitations Additional Complaint(s): Patient is a 37 year old female with a past medical history of anxiety and depression brought to the emergency department by EMS for worsening anxiety. Reports that her anxiety is accompanied by palpitations, weakness, and a feeling that she is going to pass out. Notes that she took 10 mg of Prozac, as prescribed by Dr. Braxton, this morning for the first time in two weeks and felt lightheaded. Otherwise compliant with her other medication , 25 mg Seroquel. Notes that the last time she received psych therapy was approximately a year ago. Denies suicidal ideation, homicidal ideation, hallucinations, or any other complaints. Of note, patient has an appointment with Dr. Anastasiia Capone (Psychiatry) on . PCP: none provided. Past Medical History Reviewed: Historical Data, Nursing Documentation, Vital Signs Vital Signs: Last Vital Signs Temp 98.0 F 07/03/17 11:46 Pulse 116 H 07/03/17 11:46 Resp 20 07/03/17 11:46 BP 142/87 07/03/17 11:46 Pulse Ox 99 07/03/17 12:26 - Medical History PMH: Anxiety, Depression, HTN, Hypothyroidism - Family History Family History: States: Unknown Family Hx - Social History Current smoker - smoking cessation education provided: No Ex-Smoker (has not smoked in the last 12 months): No Alcohol: None Drugs: Denies - Immunization History Hx Tetanus Toxoid Vaccination: No Hx Influenza Vaccination: No Hx Pneumococcal Vaccination: No - Home Medications Home Medications: Ambulatory Orders Medication Instructions Recorded Aspirin [Ecotrin] 81 mg PO DAILY #30 12/31/16 Atenolol [Tenormin] 25 mg PO DAILY #30 12/31/16 Benztropine [Cogentin] 2 mg PO HS #30 tab 12/31/16 DiphenhydrAMINE [Benadryl] 50 mg PO Q6 PRN #30 cap 12/31/16 FLUoxetine [Prozac] 20 mg PO DAILY #30 cap 12/31/16 Gabapentin [Neurontin] 300 mg PO TID #90 cap 12/31/16 Levothyroxine [Synthroid] 125 mcg PO DAILY #30 12/31/16 QUEtiapine [Seroquel] 100 mg PO HS #30 tab 12/31/16 Nitrofurantoin Macrocrystals 1 cap PO BID #14 cap 05/05/17 [Macrobid] - Allergies Allergies/Adverse Reactions: Allergies Allergy/AdvReac Type Severity Reaction Status Date / Time No Known Allergies Allergy Verified 07/01/17 17:49 Review of Systems ROS Statement: Except As Marked, All Systems Reviewed And Found Negative Psych: Positive for: Anxiety. Negative for: Suicidal ideation (or homicidal ideation), Other (hallucinations) Physical Exam - Reviewed Nursing Documentation Reviewed: Yes Vital Signs Reviewed: Yes - Physical Exam Head Exam: Positive for: ATRAUMATIC, NORMAL INSPECTION, NORMOCEPHALIC Skin: Positive for: Normal Color, Warm, Dry Eye Exam: Positive for: Normal appearance Neck: Positive for: Normal, Painless ROM Cardiovascular/Chest: Positive for: Regular Rate, Rhythm Respiratory: Positive for: Normal Breath Sounds. Negative for: Accessory Muscle Use, Respiratory Distress Extremity: Positive for: Normal ROM Neurologic/Psych: Positive for: Alert, Oriented (x3) - Laboratory Results Result Diagrams: 07/03/17 13:32 07/03/17 13:32 - ECG O2 Sat by Pulse Oximetry: 99 (RA) Pulse Ox Interpretation: Normal Medical Decision Making Medical Decision Making: Time: 12:18 Initial impression: Anxiety Initial plan: Ativan 1 mg PO Crisis evaluation Crisis made aware of patient. 14:00 Labs ordered and reviewed. In my clinical judgment patient is medically cleared and stable for psychiatric admission. 15:20 Spoke with leather production worker Keli who reports patient is stable for discharge as per Dr Nguyen ~ Scribe Attestation: Documented by Stephy Jara, acting as a scribe for REZA Veliz. Provider Scribe Attestation: All medical record entries made by the Scribe were at my direction and personally dictated by me. I have reviewed the chart and agree that the record accurately reflects my personal performance of the history, physical exam, medical decision making, and the department course for this patient. I have also personally directed, reviewed, and agree with the discharge instructions and disposition. Disposition - Clinical Impression Clinical Impression: Anxiety - Patient ED Disposition Is Patient to be Admitted: No Counseled Patient/Family Regarding: Studies Performed, Diagnosis, Need For Followup - Disposition Disposition: Routine/Home Disposition Time: 15:21 Condition: STABLE Additional Instructions: Follow up with your psychiatrist for further evaluation. Take your medications as prescribed. Return to the emergency department at any time if symptoms persist or worsen. Instructions: Anxiety (ED) Forms: [employer] (Latvian) - POA Present On Arrival: None
[2017-07-03 13:41] LABS: BASO % 0.5 % (0.0-2.0); EOS # 0.2 K/uL (0.0-0.7); EOS % 1.9 % (0.0-4.0); HEMATOCRIT 33.1 % (34.0-47.0); LYMPH # 1.5 K/uL (1.0-4.3); LYMPH % 19.1 % (20.0-40.0); MEAN CELL VOLUME 75.5 fl (81.0-99.0); MEAN CORPUSCULAR HEMOGLOBIN 25.6 pg (27.0-31.0); MEAN CORPUSCULAR HGB CONC 33.9 g/dL (33.0-37.0); MEAN PLATELET VOLUME 7.6 fl (7.2-11.7); MONO # 0.4 K/uL (0.0-0.8); NEUT # 5.9 K/uL (1.8-7.0); NEUT % 73.5 % (50.0-75.0); RED CELL DISTRIBUTION WIDTH 15.1 % (11.5-14.5); WHITE BLOOD COUNT 8.1 K/uL (4.8-10.8)
[2017-07-03 13:47] LABS: ALCOHOL SERUM < 10 mg/dl (0-10); BLOOD UREA NITROGEN 15 mg/dl (7-17); CALCIUM 8.9 mg/dL (8.4-10.2); CARBON DIOXIDE 27 mmol/L (22-30); CHLORIDE 104 mmol/L (98-107); GFR AFRICAN-AMERICAN > 60; GLUCOSE,RANDOM 96 mg/dL (65-105); POTASSIUM 4.1 MMOL/L (3.6-5.0); SODIUM 141 mmol/l (132-148)
[2017-07-03 14:01] LABS: RBC URINE 1 /hpf (0-3); URINE BILIRUBIN NEGATIVE (NEGATIVE); URINE BLOOD SMALL (NEGATIVE); URINE COLOR YELLOW (YELLOW); URINE GLUCOSE (UA) NEG (Normal); URINE KETONE NEGATIVE (NEGATIVE); URINE LEUKOCYTE ESTERASE TRACE Leu/uL (Negative); URINE PROTEIN NEGATIVE (NEGATIVE); URINE UROBILINOGEN 0.2-1.0 mg/dL (0.2-1.0); WBC URINE 2 /hpf (0-5)
== END 2017-07-03 15:38 | disposition home or self-care (01) ==
LOC: H.ER 11:43
DX: F41.9 Anxiety disorder, unspecified (principal); E03.9 Hypothyroidism, unspecified; F32.9 Major depressive disorder, single episode, unspecified; I10 Essential (primary) hypertension; Z79.82 Long term (current) use of aspirin

== ENCOUNTER 2017-07-07 12:36 | Emergency (ER) | payer MEDICAID ==
[2017-07-07 12:37] VITALS: BMI 31.8
[2017-07-07 12:47] VITALS: BP 132/82; PULSE 96; RESP 18; TEMP 98; O2SAT 99
--- NOTE | 2017-07-07 13:23 | ED PDOC ---
HPI: Psych/Substance Abuse Time Seen by Provider: 07/07/17 12:40 Chief Complaint (Nursing): Psychiatric Evaluation Chief Complaint (Provider): Crisis eval History Per: Patient History/Exam Limitations: no limitations Current Symptoms Are (Timing): Still Present Modifying Factor(s): None Severity: None Associated Symptoms: Anxiety, Depression. denies: Suicidal Thoughts, Suicidal Plan Additional Complaint(s): 37yo female, with past medical history of anxiety, presents to ED for evaluation of anxiety, and reports she has been increasingly depressed. Patient states she has not had a psych follow up and reports she "cant take it anymore. " She denies any suicidal ideation, homicidal ideation, hallucinations. Patient has no medical complaints. Past Medical History Reviewed: Historical Data, Nursing Documentation, Vital Signs Vital Signs: Last Vital Signs Temp 98.0 F 07/07/17 12:44 Pulse 96 H 07/07/17 12:44 Resp 18 07/07/17 12:44 BP 132/82 07/07/17 12:44 Pulse Ox 99 07/07/17 12:44 - Medical History PMH: Anxiety, Depression, HTN, Hypothyroidism Denies: Diabetes, Hepatitis, HIV, Chronic Kidney Disease, Seizures, Sexually Transmitted Disease - Surgical History Surgical History: No Surg Hx - Family History Family History: States: No Known Family Hx, Unknown Family Hx - Social History Current smoker - smoking cessation education provided: No Ex-Smoker (has not smoked in the last 12 months): No Alcohol: None Drugs: Denies - Immunization History Hx Tetanus Toxoid Vaccination: No Hx Influenza Vaccination: No Hx Pneumococcal Vaccination: No - Home Medications Home Medications: Ambulatory Orders Medication Instructions Recorded Aspirin [Ecotrin] 81 mg PO DAILY #30 12/31/16 Atenolol [Tenormin] 25 mg PO DAILY #30 12/31/16 Benztropine [Cogentin] 2 mg PO HS #30 tab 12/31/16 DiphenhydrAMINE [Benadryl] 50 mg PO Q6 PRN #30 cap 12/31/16 FLUoxetine [Prozac] 20 mg PO DAILY #30 cap 12/31/16 Gabapentin [Neurontin] 300 mg PO TID #90 cap 12/31/16 Levothyroxine [Synthroid] 125 mcg PO DAILY #30 12/31/16 QUEtiapine [Seroquel] 100 mg PO HS #30 tab 12/31/16 Nitrofurantoin Macrocrystals 1 cap PO BID #14 cap 05/05/17 [Macrobid] - Allergies Allergies/Adverse Reactions: Allergies Allergy/AdvReac Type Severity Reaction Status Date / Time No Known Allergies Allergy Verified 07/01/17 17:49 Review of Systems ROS Statement: Except As Marked, All Systems Reviewed And Found Negative Psych: Positive for: Anxiety, Depression. Negative for: Suicidal ideation Physical Exam - Reviewed Nursing Documentation Reviewed: Yes Vital Signs Reviewed: Yes - Physical Exam Appears: Positive for: Well (tearful but well appearing) Head Exam: Positive for: ATRAUMATIC, NORMAL INSPECTION, NORMOCEPHALIC Skin: Positive for: Normal Color Eye Exam: Positive for: Normal appearance Neck: Positive for: Supple Cardiovascular/Chest: Positive for: Regular Rate, Rhythm Respiratory: Positive for: Normal Breath Sounds. Negative for: Respiratory Distress Neurologic/Psych: Positive for: Alert, Oriented. Negative for: Motor/Sensory Deficits - ECG O2 Sat by Pulse Oximetry: 99 (RA) Pulse Ox Interpretation: Normal Medical Decision Making Medical Decision Making: Time: 1250 Impression: Psychiatric evaluation Plan: -- Crisis evaluation -- Xanax 0.5 mg -- Urinalysis -- labs Reassess Time: 1512 Patient seen and evaluated by crisis team and patient is stable for discharge per Dr. Diaz. Bloodwork and labs orders cancelled. Patient provided with follow up instructions at mental health clinic. pt has f/ u appt made for tomorrow. Scribe Attestation: Documented by Carlee Reddy acting as a scribe for REZA Neumann Provider Attestation: All medical record entries made by the Scribe were at my direction and personally dictated by me. I have reviewed the chart and agree that the record accurately reflects my personal performance of the history, physical exam, medical decision making, and the department course for this patient. I have also personally directed, reviewed, and agree with the discharge instructions and disposition. Disposition - Clinical Impression Clinical Impression: Anxiety - Patient ED Disposition Is Patient to be Admitted: No Counseled Patient/Family Regarding: Need For Followup - Disposition Disposition: Routine/Home Disposition Time: 15:14 Condition: STABLE Instructions: Anxiety (ED) Forms: [employer] (Malian)
== END 2017-07-07 16:54 | disposition home or self-care (01) ==
LOC: H.ER 12:36
DX: F41.9 Anxiety disorder, unspecified (principal); F32.9 Major depressive disorder, single episode, unspecified; E03.9 Hypothyroidism, unspecified; I10 Essential (primary) hypertension; Z79.82 Long term (current) use of aspirin

== ENCOUNTER 2017-07-21 12:00 | Emergency (ER) | payer MEDICAID ==
[2017-07-21 12:03] VITALS: BMI 36.9
[2017-07-21 12:05] VITALS: BP 137/98; RESP 18; TEMP 98.7; O2SAT 98
--- NOTE | 2017-07-21 12:46 | ED PDOC ---
HPI: Psych/Substance Abuse Time Seen by Provider: 07/21/17 12:20 Chief Complaint (Nursing): Psychiatric Evaluation Chief Complaint (Provider): Psychiatric Evaluation History Per: Patient History/Exam Limitations: no limitations Onset/Duration Of Symptoms: Days (x1) Current Symptoms Are (Timing): Still Present Additional Complaint(s): Keisha Tripathi is a 37 year old female with a past history of anxiety and depression who presents to the ED due to an anxiety attack. Patient states she had a fight with her mother which triggered the attack. Patient was last seen in the ED 07/11/17, but states she had no followup. Patient states "I just cant take it no more" and would like to speak to a Psychiatrist. Patient denies homicidal ideations, but confirms suicidal ideations. Patient has no other medical complaints. PMD: Non-[facility] Provider Past Medical History Reviewed: Historical Data, Nursing Documentation, Vital Signs Vital Signs: Last Vital Signs Temp 98.7 F 07/21/17 12:03 Pulse 87 07/21/17 12:03 Resp 18 07/21/17 12:03 BP 137/98 H 07/21/17 12:03 Pulse Ox 98 07/21/17 12:03 - Medical History PMH: Anxiety, Depression, HTN, Hypothyroidism Denies: Diabetes, Hepatitis, HIV, Chronic Kidney Disease, Seizures, Sexually Transmitted Disease - Family History Family History: States: Unknown Family Hx - Social History Alcohol: None Drugs: Denies - Immunization History Hx Tetanus Toxoid Vaccination: No Hx Influenza Vaccination: No Hx Pneumococcal Vaccination: No - Home Medications Home Medications: Ambulatory Orders Medication Instructions Recorded Aspirin [Ecotrin] 81 mg PO DAILY #30 12/31/16 Atenolol [Tenormin] 25 mg PO DAILY #30 12/31/16 Benztropine [Cogentin] 2 mg PO HS #30 tab 12/31/16 DiphenhydrAMINE [Benadryl] 50 mg PO Q6 PRN #30 cap 12/31/16 FLUoxetine [Prozac] 20 mg PO DAILY #30 cap 12/31/16 Gabapentin [Neurontin] 300 mg PO TID #90 cap 12/31/16 Levothyroxine [Synthroid] 125 mcg PO DAILY #30 12/31/16 QUEtiapine [Seroquel] 100 mg PO HS #30 tab 12/31/16 Nitrofurantoin Macrocrystals 1 cap PO BID #14 cap 05/05/17 [Macrobid] - Allergies Allergies/Adverse Reactions: Allergies Allergy/AdvReac Type Severity Reaction Status Date / Time No Known Allergies Allergy Verified 07/21/17 12:03 Review of Systems ROS Statement: Except As Marked, All Systems Reviewed And Found Negative Psych: Positive for: Anxiety, Suicidal ideation Physical Exam - Reviewed Nursing Documentation Reviewed: Yes Vital Signs Reviewed: Yes - Physical Exam Appears: Positive for: Well, Non-toxic, No Acute Distress Head Exam: Positive for: ATRAUMATIC, NORMAL INSPECTION, NORMOCEPHALIC Skin: Positive for: Normal Color (No signs of self injury). Negative for: Rash Eye Exam: Positive for: Normal appearance Cardiovascular/Chest: Positive for: Regular Rate, Rhythm. Negative for: Murmur Respiratory: Positive for: Normal Breath Sounds. Negative for: Respiratory Distress Neurologic/Psych: Positive for: Alert, Oriented, Mood/Affect (Anxious, emotional distress, crying) - ECG Interpretation Of ECG: NSR, 91 bpm, no ectopy or acute changes O2 Sat by Pulse Oximetry: 98 (RA) Pulse Ox Interpretation: Normal - Progress ED Course And Treament: Cleared by Dr. Marsh Diagnosis Anxiety Medical Decision Making Medical Decision Making: Time: 12:29 Clinical Impression: Pending crisis evaluation Plan: --EKG --Crisis evaluation --ED Urine --Xanax --Reevaluation Scribe Attestation: Documented by Remi Mcgrath, acting as a scribe for Aimee Sher PA-C Provider Scribe Attestation: All medical record entries made by the Scribe were at my direction and personally dictated by me. I have reviewed the chart and agree that the record accurately reflects my personal performance of the history, physical exam, medical decision making, and the department course for this patient. I have also personally directed, reviewed, and agree with the discharge instructions and disposition. Disposition - Clinical Impression Clinical Impression: Anxiety - Patient ED Disposition Is Patient to be Admitted: No - Disposition Referrals: [facility] [Outside] Disposition: Routine/Home Disposition Time: 13:52 Condition: FAIR Additional Instructions: F/U WITH YOUR APPOINTMENT AT CLINIC July AT 11:00AM Instructions: Anxiety (ED) Forms: [employer] (Kinyarwanda)
[2017-07-21 12:49] VITALS: PULSE 91
--- NOTE | 2017-07-22 10:54 | CARD ---
APPROVED REPORT EKG Measurement Heart [id number] <Conclusion> Normal sinus rhythm Normal ECG
== END 2017-07-21 14:15 | disposition home or self-care (01) ==
LOC: H.ER 12:00
DX: F41.9 Anxiety disorder, unspecified (principal); E03.9 Hypothyroidism, unspecified; F32.9 Major depressive disorder, single episode, unspecified; I10 Essential (primary) hypertension; Z79.82 Long term (current) use of aspirin

== ENCOUNTER 2017-07-25 00:04 | Emergency (ER) | payer MEDICAID ==
[2017-07-25 01:20] VITALS: BMI 38.1
[2017-07-25] MEDS ORDERED: Sodium Chloride 0.9% 1,000 ML IV STA (01:22)
[2017-07-25] MEDS ORDERED: Phenylephrine 0.5% Nasal Spray NAS STA (01:23)
[2017-07-25 01:30] VITALS: BP 120/69; PULSE 85; RESP 18; TEMP 98.2; O2SAT 97
[2017-07-25] MEDS ORDERED: Phenylephrine 0.5% Nasal Spray NAS ONE (01:37)
--- NOTE | 2017-07-25 01:40 | ED PDOC ---
HPI: CCC, URI, Sore Throat Time Seen by Provider: 07/25/17 00:45 Chief Complaint (Nursing): Cough, Cold, Congestion Chief Complaint (Provider): headache, nasal congestion History Per: Patient History/Exam Limitations: no limitations Onset/Duration Of Symptoms: Days (x2) Current Symptoms Are (Timing): Still Present Additional Complaint(s): 37 year old female with a past medical history of hypothyroidism, depression, and anxiety, presenting with a headache as well as nasal congestion , vomiting, and diarrhea since yesterday. Patient reports a dry cough as well. Patients mother was recently diagnosed with sinusitis and bronchitis. States she took Mucinex at home with no relief. Also reports 1 episode of vomiting. PMD: Provider TBD Past Medical History Reviewed: Historical Data, Nursing Documentation, Vital Signs Vital Signs: Last Vital Signs Temp 98.2 F 07/25/17 00:43 Pulse 85 07/25/17 00:43 Resp 18 07/25/17 00:43 BP 120/69 07/25/17 00:43 Pulse Ox 97 07/25/17 03:28 - Medical History PMH: Anxiety, Depression, HTN, Hypothyroidism Denies: Diabetes, Hepatitis, HIV, Chronic Kidney Disease, Seizures, Sexually Transmitted Disease - Surgical History Other surgeries: Right thumb surgery - Family History Family History: States: Unknown Family Hx - Social History Current smoker - smoking cessation education provided: No Alcohol: None Drugs: Denies - Immunization History Hx Tetanus Toxoid Vaccination: No Hx Influenza Vaccination: No Hx Pneumococcal Vaccination: No - Home Medications Home Medications: Ambulatory Orders Medication Instructions Recorded Aspirin [Ecotrin] 81 mg PO DAILY #30 12/31/16 Atenolol [Tenormin] 25 mg PO DAILY #30 12/31/16 Benztropine [Cogentin] 2 mg PO HS #30 tab 12/31/16 DiphenhydrAMINE [Benadryl] 50 mg PO Q6 PRN #30 cap 12/31/16 FLUoxetine [Prozac] 20 mg PO DAILY #30 cap 12/31/16 Gabapentin [Neurontin] 300 mg PO TID #90 cap 12/31/16 Levothyroxine [Synthroid] 125 mcg PO DAILY #30 12/31/16 QUEtiapine [Seroquel] 100 mg PO HS #30 tab 12/31/16 Nitrofurantoin Macrocrystals 1 cap PO BID #14 cap 05/05/17 [Macrobid] Azithromycin [Zithromax] 250 mg PO QAM #1 pkg 07/25/17 Promethazine DM [Phenergan DM 5 ml PO Q6 PRN #4 oz 07/25/17 Syrup] - Allergies Allergies/Adverse Reactions: Allergies Allergy/AdvReac Type Severity Reaction Status Date / Time No Known Allergies Allergy Verified 07/25/17 01:19 Review of Systems ROS Statement: Except As Marked, All Systems Reviewed And Found Negative Constitutional: Negative for: Fever ENT: Positive for: Nose Congestion Respiratory: Positive for: Cough, Shortness of Breath Gastrointestinal: Positive for: Vomiting, Diarrhea Neurological: Positive for: Headache Physical Exam - Reviewed Nursing Documentation Reviewed: Yes Vital Signs Reviewed: Yes - Physical Exam Appears: Positive for: Non-toxic, No Acute Distress Head Exam: Positive for: ATRAUMATIC, NORMOCEPHALIC Skin: Positive for: Normal Color, Warm, Dry Eye Exam: Positive for: EOMI, Normal appearance, PERRL ENT: Positive for: Other (Bifrontal sinus tenderness) Neck: Positive for: Normal, Painless ROM Cardiovascular/Chest: Positive for: Regular Rate, Rhythm. Negative for: Murmur Respiratory: Positive for: Normal Breath Sounds. Negative for: Accessory Muscle Use, Respiratory Distress Gastrointestinal/Abdominal: Positive for: Normal Exam, Soft. Negative for: Tenderness Back: Positive for: Normal Inspection. Negative for: L CVA Tenderness, R CVA Tenderness, Vertebral Tenderness Extremity: Positive for: Normal ROM. Negative for: Pedal Edema, Deformity Neurologic/Psych: Positive for: Alert, Oriented - Laboratory Results Result Diagrams: 07/25/17 01:45 07/25/17 01:45 - ECG O2 Sat by Pulse Oximetry: 97 (RA) Pulse Ox Interpretation: Normal Medical Decision Making Medical Decision Making: Time: 1:20 Initial Impression: 37 year old female with headache and congestion Initial Plan: --CMP --CBC w/ differential --Blood culture --Urine --Urine dip --Influenza A B --NS IV 1000 ml at 1000 mls/hr --Toradol 15 mg IV --Zofran 4 mg IV --Phenylephrine 2 spry ANGELA --Pending reevaluation Time: 2:40 Labs reviewed and revealed no clinically significant abnormalities Time: 3:10 Patient reports improvement in symptoms after treatment given. Will discharge home with prescriptions for Zithromax and Promethazine. Counseling was provided and all questions were answered regarding diagnosis and need for follow up with PMD. There is agreement to discharge plan. Return if symptoms persist or worsen. Clinical Impression: Sinusitis Scribe Attestation: Documented by Mely More, acting as a scribe for Dwaine Sims MD Provider Scribe Attestation: All medical record entries made by the Scribe were at my direction and personally dictated by me. I have reviewed the chart and agree that the record accurately reflects my personal performance of the history, physical exam, medical decision making, and the department course for this patient. I have also personally directed, reviewed, and agree with the discharge instructions and disposition. Disposition - Clinical Impression Clinical Impression: Sinusitis - Patient ED Disposition Is Patient to be Admitted: No Counseled Patient/Family Regarding: Studies Performed, Diagnosis, Need For Followup, Rx Given - Disposition Referrals: Oscar Thacker MD [Primary Care Provider] - Disposition: Routine/Home Disposition Time: 03:10 Condition: STABLE Prescriptions: Azithromycin [Zithromax] 250 mg PO QAM #1 pkg Promethazine DM [Phenergan DM Syrup] 5 ml PO Q6 PRN #4 oz PRN Reason: cough/congestion Instructions: Sinusitis (ED) Forms: [employer] (Mohawk)
[2017-07-25 02:02] LABS: BASO # 0.1 K/uL (0.0-0.2); BASO % 1.1 % (0.0-2.0); EOS # 0.6 K/uL (0.0-0.7); EOS % 7.4 % (0.0-4.0); HEMATOCRIT 32.1 % (34.0-47.0); LYMPH # 1.6 K/uL (1.0-4.3); LYMPH % 20.1 % (20.0-40.0); MEAN CELL VOLUME 77.4 fl (81.0-99.0); MEAN CORPUSCULAR HEMOGLOBIN 24.6 pg (27.0-31.0); MEAN CORPUSCULAR HGB CONC 31.8 g/dL (33.0-37.0); MEAN PLATELET VOLUME 7.8 fl (7.2-11.7); MONO # 0.7 K/uL (0.0-0.8); MONO % 9.1 % (0.0-10.0); NEUT # 4.8 K/uL (1.8-7.0); NEUT % 62.3 % (50.0-75.0); RED CELL DISTRIBUTION WIDTH 15.4 % (11.5-14.5); WHITE BLOOD COUNT 7.7 K/uL (4.8-10.8)
[2017-07-25 02:08] LABS: ALB/GLOB RATIO 1.3 (1.0-2.1); ALKALINE PHOSPHATASE 91 U/L (38-126); ALT/SGPT 28 U/L (9-52); AST/SGOT 13 U/L (14-36); BILIRUBIN,TOTAL 0.5 mg/dl (0.2-1.3); BLOOD UREA NITROGEN 14 mg/dl (7-17); CALCIUM 8.2 mg/dL (8.4-10.2); CARBON DIOXIDE 26 mmol/L (22-30); CHLORIDE 105 mmol/L (98-107); GFR AFRICAN-AMERICAN > 60; GLUCOSE,RANDOM 125 mg/dL (65-105); POTASSIUM 3.9 MMOL/L (3.6-5.0); SODIUM 139 mmol/l (132-148); TOTAL PROTEIN 7.1 G/DL (6.3-8.2)
== END 2017-07-25 03:41 | disposition home or self-care (01) ==
LOC: H.ER 00:04
DX: J32.9 Chronic sinusitis, unspecified (principal); E03.9 Hypothyroidism, unspecified; F32.9 Major depressive disorder, single episode, unspecified; F41.9 Anxiety disorder, unspecified; I10 Essential (primary) hypertension; Z79.82 Long term (current) use of aspirin
CPT/HCPCS: 80053; 85025; 87040; 87804; 96374; 99282; J1885; J2405; J7040

== ENCOUNTER 2017-07-31 12:56 | Inpatient (IN) | payer MEDICAID ==
[2017-07-31 12:57] VITALS: BMI 38.1
--- NOTE | 2017-07-31 13:19 | ED PDOC ---
HPI: General Adult Time Seen by Provider: 07/31/17 13:18 Chief Complaint (Nursing): Anxiety Chief Complaint (Provider): anxiety History Per: Patient (37 y/o female h/o Anxiety and Depression sent from [facility] [place] for admission. States she has been unable to control crying/anxiety. Has no change in medications.) Past Medical History Reviewed: Historical Data, Nursing Documentation, Vital Signs Vital Signs: Last Vital Signs Temp 98.0 F 07/31/17 13:02 Pulse 95 H 07/31/17 13:02 Resp 16 07/31/17 13:02 BP 137/74 07/31/17 13:02 Pulse Ox 99 07/31/17 13:19 - Medical History PMH: Anxiety, Depression, HTN, Hypothyroidism Denies: Diabetes, Hepatitis, HIV, Chronic Kidney Disease, Seizures, Sexually Transmitted Disease - Family History Family History: States: Unknown Family Hx - Immunization History Hx Tetanus Toxoid Vaccination: No Hx Influenza Vaccination: No Hx Pneumococcal Vaccination: No - Home Medications Home Medications: Ambulatory Orders Medication Instructions Recorded Aspirin [Ecotrin] 81 mg PO DAILY #30 12/31/16 Atenolol [Tenormin] 25 mg PO DAILY #30 12/31/16 Benztropine [Cogentin] 2 mg PO HS #30 tab 12/31/16 DiphenhydrAMINE [Benadryl] 50 mg PO Q6 PRN #30 cap 12/31/16 FLUoxetine [Prozac] 20 mg PO DAILY #30 cap 12/31/16 Gabapentin [Neurontin] 300 mg PO TID #90 cap 12/31/16 Levothyroxine [Synthroid] 125 mcg PO DAILY #30 12/31/16 QUEtiapine [Seroquel] 100 mg PO HS #30 tab 12/31/16 Nitrofurantoin Macrocrystals 1 cap PO BID #14 cap 05/05/17 [Macrobid] Azithromycin [Zithromax] 250 mg PO QAM #1 pkg 07/25/17 Promethazine DM [Phenergan DM 5 ml PO Q6 PRN #4 oz 07/25/17 Syrup] - Allergies Allergies/Adverse Reactions: Allergies Allergy/AdvReac Type Severity Reaction Status Date / Time No Known Allergies Allergy Verified 07/25/17 01:19 Review of Systems ROS Statement: Except As Marked, All Systems Reviewed And Found Negative Physical Exam - Reviewed Nursing Documentation Reviewed: Yes Vital Signs Reviewed: Yes - Physical Exam Appears: Positive for: Well, Non-toxic, No Acute Distress Head Exam: Positive for: ATRAUMATIC, NORMAL INSPECTION, NORMOCEPHALIC Skin: Positive for: Normal Color, Warm, DRY Eye Exam: Positive for: EOMI, Normal appearance, PERRL ENT: Positive for: Normal ENT Inspection Neck: Positive for: Normal, Painless ROM Cardiovascular/Chest: Positive for: Regular Rate, Rhythm Respiratory: Positive for: CNT, Normal Breath Sounds Gastrointestinal/Abdominal: Positive for: Normal Exam, Bowel Sounds, Soft Back: Positive for: Normal Inspection Extremity: Positive for: Normal ROM Neurologic/Psych: Positive for: Alert, Oriented - Laboratory Results Result Diagrams: 07/31/17 13:46 07/31/17 13:46 - ECG O2 Sat by Pulse Oximetry: 99 - Progress ED Course And Treament: EKG: NSR 81 bpm no ectopy no acute changes xanax 0.5mg seen by crisis Admit to Dr. Nguyen Diagnosis anxiety Disposition - Clinical Impression Clinical Impression: Anxiety - Patient ED Disposition Is Patient to be Admitted: Yes - Disposition Disposition Time: 16:19 Condition: FAIR Forms: [employer] (Armenian) - Pt Status Changed To: Hospital Disposition Of: Inpatient - Admit Certification Admit to Inpatient:: After my assessment, the patient will require hospitalization for at least two midnights. This is because of the severity of symptoms shown, intensity of services needed, and/or the medical risk in this patient being treated as an outpatient.
[2017-07-31 13:44] LABS: RBC URINE 14 /hpf (0-3); URINE BACTERIA RARE (<OCC); URINE BILIRUBIN NEGATIVE (NEGATIVE); URINE BLOOD MODERATE (NEGATIVE); URINE COLOR YELLOW (YELLOW); URINE GLUCOSE (UA) NEG (Normal); URINE KETONE TRACE mg/dL (NEGATIVE); URINE LEUKOCYTE ESTERASE LARGE Leu/uL (Negative); URINE PROTEIN 30 mg/dL (NEGATIVE); URINE UROBILINOGEN 0.2-1.0 mg/dL (0.2-1.0); WBC URINE 27 /hpf (0-5)
[2017-07-31 13:56] LABS: BASO # 0.1 K/uL (0.0-0.2); BASO % 0.6 % (0.0-2.0); EOS # 0.2 K/uL (0.0-0.7); EOS % 2.5 % (0.0-4.0); HEMATOCRIT 33.6 % (34.0-47.0); LYMPH # 3.1 K/uL (1.0-4.3); LYMPH % 31.5 % (20.0-40.0); MEAN CELL VOLUME 78.6 fl (81.0-99.0); MEAN CORPUSCULAR HEMOGLOBIN 25.8 pg (27.0-31.0); MEAN CORPUSCULAR HGB CONC 32.9 g/dL (33.0-37.0); MEAN PLATELET VOLUME 7.8 fl (7.2-11.7); MONO # 0.6 K/uL (0.0-0.8); MONO % 6.6 % (0.0-10.0); NEUT # 5.7 K/uL (1.8-7.0); NEUT % 58.8 % (50.0-75.0); NRBC % 0.2 % (0.0-0.0); RED CELL DISTRIBUTION WIDTH 15.8 % (11.5-14.5); WHITE BLOOD COUNT 9.7 K/uL (4.8-10.8)
[2017-07-31 14:04] LABS: ALB/GLOB RATIO 1.2 (1.0-2.1); ALCOHOL SERUM < 10 mg/dl (0-10); ALKALINE PHOSPHATASE 81 U/L (38-126); ALT/SGPT 27 U/L (9-52); AST/SGOT 15 U/L (14-36); BILIRUBIN,TOTAL 0.3 mg/dl (0.2-1.3); BLOOD UREA NITROGEN 18 mg/dl (7-17); CALCIUM 8.7 mg/dL (8.4-10.2); CARBON DIOXIDE 26 mmol/L (22-30); CHLORIDE 105 mmol/L (98-107); GFR AFRICAN-AMERICAN > 60; GLUCOSE,RANDOM 90 mg/dL (65-105); POTASSIUM 3.8 MMOL/L (3.6-5.0); SODIUM 144 mmol/l (132-148); TOTAL PROTEIN 7.4 G/DL (6.3-8.2)
[2017-07-31 20:26] VITALS: O2SAT 98
[2017-07-31] MEDS ORDERED: Magnesium Hydroxide Susp 30 ml UD PO PRN (22:16)
[2017-07-31] MEDS ORDERED: DiphenhydrAMINE 50 mg/ml Inj IM PRN (22:16)
[2017-07-31] MEDS ORDERED: Alum-Mag Hydrox-Simethicone Susp (30 mL) PO PRN (22:16)
--- NOTE | 2017-07-31 23:18 | PCM.BM ---
<Victor M Dutton - Last Filed: 07/31/17 23:16> Treatment Plan Problems - Problems identified on initial assessmt Anxiety Date Initiated: 07/31/17 Time Initiated: 23:16 Assessment reference: NA Status: Active Treatment assets and liabiliti Patient Assests: cooperative, ADL independent, good support system, negotiates basic needs, cognitively intact Patient Liabilities: live alone, medical problems (poor coping skills) - Milieu Protocol Maintain good personal hygiene: daily Encourage regular showers, daily Remind patient to perform daily oral care Conduct patient checks and document Observation sheet: Q15 minutes Maintain personal safety: every shift Educate patient to report safety concerns to staff, every shift Monitor environment for contraband/sharps Medication safety: Monitor for expected outcome, potential side effects: every shift, Assess barriers to learning: every shift, Assess readiness for medication education: every shift <Lana Sanz - Last Filed: 08/04/17 16:57> Treatment assets and liabiliti Patient Assests: adapts well, cooperative, ADL independent, good support system , negotiates basic needs, cognitively intact Patient Liabilities: other (poor insight/poor coping skills) Family Contact Family involvement: Family/SO is involved Family contact: Patient agrees to contact, Family has been contacted by patient , Other (Patients family will be contacted on 08/05 by ISMA WILLSON.) - Outside Agency Agency 1 Care involvment: Other Agency contact name: [facility] Agency contact number: [phone] - Goals for Treatment Patient goals for treatment: Patient to continue stabilization on 3NP through medication management and group/supportive therapy. Patient to be encouraged to attend groups regularly to promote self-awareness, stress management, and improve insight, coping skills and self-esteem. Patient to be provided with referral for appropriate level of aftercare to reduce risk of future hospitalizations and ensure safety in the community. Discharge/Continuing Care - Education Needs Education Needs: Family Medication, Family Diagnosis/Disease Process, Family Community resources, Family Aftercare Safety Plan, Patient Medication, Patient Diagnosis/Disease Process, Patient Community resources, Patient Aftercare Safety Plan - Discharge Discharge Criteria: Tolerates medication w/o severe side effects, Free of Suicidal thoughts, Normal sleep pattern, Ability to care for self, Reduction of target symptoms Discharge to:: Home, With Family - Treatment Team Participation Discussed with Family/SO: Yes Was Patient/Family/SO present at Treatment Team Meeting: No
[2017-08-01] MEDS: guaiFENesin 100 mg/5 ml Syrup UD PO PRN ×3 (03:54→21:44)
--- NOTE | 2017-08-01 08:51 | CARD ---
APPROVED REPORT EKG Measurement Heart [id number] <Conclusion> Normal sinus rhythm Normal ECG
[2017-08-01] MEDS: Levothyroxine 125 MCG TAB PO SCH ×2 (10:00→12:33)
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
[2017-08-01 11:34] LABS: T4 10.3 ug/dl (5.5-11.0)
[2017-08-01 11:47] LABS: THYROID STIMULATING HORMONE 1.41 mIU/ML (0.46-4.68)
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
[2017-08-02] MEDS: Levothyroxine 125 MCG TAB PO SCH (08:14)
[2017-08-02] MEDS: guaiFENesin 100 mg/5 ml Syrup UD PO PRN ×3 (08:45→18:39)
[2017-08-02] MEDS ORDERED: Levothyroxine 125 MCG TAB PO SCH (09:00)
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
[2017-08-03] MEDS: Levothyroxine 125 MCG TAB PO SCH (06:30)
[2017-08-03] MEDS: guaiFENesin 100 mg/5 ml Syrup UD PO PRN ×3 (08:02→21:11)
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
[2017-08-04] MEDS: Levothyroxine 125 MCG TAB PO SCH (06:31)
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
[2017-08-04 16:08] VITALS: RESP 18
[2017-08-04] MEDS: guaiFENesin 100 mg/5 ml Syrup UD PO PRN (21:01)
[2017-08-05] MEDS: Levothyroxine 125 MCG TAB PO SCH (06:36)
[2017-08-05 09:29] VITALS: TEMP 98.1
--- NOTE | 2017-08-05 14:05 | PCM.PYCHPN ---
Psychiatric Progress Note - Psychiatric Progress Note Patient seen today, length of contact: pt evaluated, discussed with team chart reviewed Patient Chief Complaint: I am feeling better today Problems Identified/Issues Discussed: pt on evaluation, more kempt, reported feeling less depressed, brighter affect, able to verbalize coping skills with distress, attending groups, no reported side effects of medications, denied s/hi denied peceptual disturbances Medical Problems: pt Diagnostic Results: generalized anxiety disorder ptsd borderline personality disorder Medication Change: No (increase prozac) Medical Record Reviewed: Yes Mental Status Examination - Cognitive Function Orientation: Person, Place Memory: Intact Attention: WNL Concentration: WNL Association: WNL Fund of Knowledge: Poor Decription of patient's judgement and insights: fair insight and poor judgement - Mood Mood: Anxious, Neutral - Affect Affect: Constricted, Depressed - Speech Speech: Appropriate - Formal Thought Process Formal Thought Process: Circumstantial - Suicidal Ideation Suicidal Ideation: No - Homicidal Ideation Homicidal Ideation: No Goal/Treatment Plan - Goal/Treatment Plan Progress Toward Problem(s) and Goals/Treatment Plan: icontinue with neurontin, seroquel and prozac cbt and group therapy Estimated Date of D/C: 08/08/17
[2017-08-05] MEDS: guaiFENesin 100 mg/5 ml Syrup UD PO PRN ×2 (15:50→22:11)
[2017-08-06] MEDS: Levothyroxine 125 MCG TAB PO SCH (06:45)
[2017-08-06] MEDS: guaiFENesin 100 mg/5 ml Syrup UD PO PRN (06:46)
[2017-08-06 08:52] VITALS: BP 141/86; PULSE 79
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
== END 2017-08-06 12:40 | disposition home or self-care (01) | DRG 425 ==
LOC: H.ER 12:56 → H.ERHOLD 16:17 → H.PSYCH 22:53
PROVIDERS: ADMIT Psychiatry & Neurology Psychiatry; ATTEND Psychiatry & Neurology Psychiatry
PROC: GZHZZZZ Group Psychotherapy (ICD-10-PCS; principal; 2017-07-31)
PROC: GZ58ZZZ Individual Psychotherapy, Cognitive-Behavioral (ICD-10-PCS; 2017-07-31)
PROC: GZ56ZZZ Individual Psychotherapy, Supportive (ICD-10-PCS; 2017-07-31)
DX: F41.1 Generalized anxiety disorder (principal); D64.9 Anemia, unspecified; E03.9 Hypothyroidism, unspecified; F43.10 Post-traumatic stress disorder, unspecified; F60.3 Borderline personality disorder; I10 Essential (primary) hypertension; J40 Bronchitis, not specified as acute or chronic; E78.00 Pure hypercholesterolemia, unspecified

== ENCOUNTER 2017-08-14 12:37 | Emergency (ER) | payer MEDICAID ==
[2017-08-14 12:38] VITALS: BMI 38.1
[2017-08-14 12:45] VITALS: O2SAT 100
--- NOTE | 2017-08-14 15:31 | ED PDOC ---
HPI: General Adult Time Seen by Provider: 08/14/17 12:57 Chief Complaint (Nursing): Anxiety History Per: Patient Additional Complaint(s): Pt. states she was walking to get "fresh air" outside today when she developed "anxiety." Reports that she has not had her Ativan 0.5mg in 2 weeks as she misplaced her medication. Reports feeling SOB but is present only when she is anxious. Denies fever, chest pain, SI/HI, hallucinations. Past Medical History Reviewed: Historical Data, Nursing Documentation, Vital Signs Vital Signs: Last Vital Signs Temp 97.0 F L 08/14/17 12:41 Pulse 74 08/14/17 15:37 Resp 16 08/14/17 12:41 BP 128/76 08/14/17 12:41 Pulse Ox 100 08/14/17 15:37 - Medical History PMH: Anxiety, Bronchitis (allegedly is coughing secondary to bronchitis), Depression, HTN, Hypothyroidism, Schizophrenia Denies: Diabetes, Hepatitis, HIV, Chronic Kidney Disease, Seizures, Sexually Transmitted Disease - Family History Family History: States: No Known Family Hx - Immunization History Hx Tetanus Toxoid Vaccination: No Hx Influenza Vaccination: No Hx Pneumococcal Vaccination: No - Home Medications Home Medications: Ambulatory Orders Medication Instructions Recorded Atenolol [Tenormin] 25 mg PO DAILY #30 12/31/16 Levothyroxine [Synthroid] 125 mcg PO DAILY #30 12/31/16 Divalproex [Depakote] 500 mg PO BID 06/23/17 QUEtiapine [Seroquel] 25 mg PO AMHS 06/23/17 Promethazine DM [Phenergan DM 5 ml PO Q6 PRN #4 oz 07/25/17 Syrup] Benzonatate 200 mg PO Q8H PRN 07/31/17 predniSONE [predniSONE Tab] 10 mg PO ASDIR 07/31/17 FLUoxetine [Prozac] 30 mg PO DAILY 30 Days #90 cap 08/06/17 QUEtiapine [SEROquel] 50 mg PO HS 30 Days #30 tab 08/06/17 guaiFENesin [Robitussin] 100 mg PO Q4 PRN udc 08/06/17 - Allergies Allergies/Adverse Reactions: Allergies Allergy/AdvReac Type Severity Reaction Status Date / Time alprazolam [From Xanax] AdvReac Mild NAUSEA Verified 05/14/17 19:55 Review of Systems ROS Statement: Except As Marked, All Systems Reviewed And Found Negative Physical Exam - Reviewed Nursing Documentation Reviewed: Yes Vital Signs Reviewed: Yes - Physical Exam Appears: Positive for: Well, Non-toxic, No Acute Distress Head Exam: Positive for: ATRAUMATIC, NORMAL INSPECTION, NORMOCEPHALIC Skin: Positive for: Normal Color, Warm. Negative for: Rash Eye Exam: Positive for: EOMI, Normal appearance, PERRL ENT: Positive for: Normal ENT Inspection Neck: Positive for: Normal, Painless ROM Cardiovascular/Chest: Positive for: Regular Rate, Rhythm Respiratory: Positive for: CNT, Normal Breath Sounds Gastrointestinal/Abdominal: Positive for: Normal Exam, Bowel Sounds, Soft. Negative for: Tenderness Back: Positive for: Normal Inspection Extremity: Positive for: Normal ROM Neurologic/Psych: Positive for: Alert, Oriented, Mood/Affect (appears anxious but is cooperative). Negative for: Aphasia, Facial Droop - ECG ECG: Positive for: Interpreted By Me ECG Rhythm: Positive for: Sinus Rhythm. Negative for: ST/T Changes Rate: 74 O2 Sat by Pulse Oximetry: 100 - Progress ED Course And Treament: Ativan 0.5mg PO ordered. Crisis evaluation ordered. Pt. evaluated by [facility] laboratory worker, who spoke with Dr. Nguyen and cleared and cleared pt. for discharge. Disposition - Clinical Impression Clinical Impression: Anxiety - Patient ED Disposition Is Patient to be Admitted: No - Disposition Disposition: Routine/Home Disposition Time: 15:44 Condition: STABLE Instructions: Anxiety (ED) Forms: [employer] (Tuvaluan)
[2017-08-14 15:47] VITALS: BP 122/70; PULSE 64; RESP 18; TEMP 98
--- NOTE | 2017-08-15 15:56 | CARD ---
APPROVED REPORT EKG Measurement Heart [id number] <Conclusion> Normal sinus rhythm Normal ECG
== END 2017-08-14 15:48 | disposition home or self-care (01) ==
LOC: H.ER 12:37
DX: F41.9 Anxiety disorder, unspecified (principal); E03.9 Hypothyroidism, unspecified; F20.9 Schizophrenia, unspecified; F32.9 Major depressive disorder, single episode, unspecified; I10 Essential (primary) hypertension

== ENCOUNTER 2017-08-19 13:02 | Emergency (ER) | payer MEDICAID ==
[2017-08-19 13:02] VITALS: BMI 38.1
[2017-08-19 13:12] VITALS: BP 123/81; PULSE 85; RESP 18; TEMP 99
--- NOTE | 2017-08-19 13:46 | ED PDOC ---
HPI: General Adult Time Seen by Provider: 08/19/17 13:08 Chief Complaint (Nursing): Anxiety Chief Complaint (Provider): Anxiety History Per: Patient History/Exam Limitations: no limitations Onset/Duration Of Symptoms: Days Have you had recent travel within the past 21 days to any of the following countries: [place], [place], [place] or [place]?: No Current Symptoms Are (Timing): Still Present Additional Complaint(s): Pt states she comes to the ER for evaluation of anxiety and depression. Pt had appointment today. Pt states she was called and the appointment was changed to next week. According to clinic patient made a scene in the clinic and was sent to ER for evaluation. Pt reports feeling anxious. Past Medical History Reviewed: Historical Data, Nursing Documentation, Vital Signs Vital Signs: Last Vital Signs Temp 99 F 08/19/17 13:08 Pulse 85 08/19/17 13:08 Resp 18 08/19/17 13:08 BP 123/81 08/19/17 13:08 Pulse Ox 99 08/19/17 13:08 - Medical History PMH: Anxiety, Bronchitis (allegedly is coughing secondary to bronchitis), Depression, HTN, Hypothyroidism, Schizophrenia Denies: Diabetes, Hepatitis, HIV, Chronic Kidney Disease, Seizures, Sexually Transmitted Disease - Surgical History Surgical History: No Surg Hx - Family History Family History: States: Unknown Family Hx - Living Arrangements Living Arrangements: With Family - Social History Current smoker - smoking cessation education provided: No - Immunization History Hx Tetanus Toxoid Vaccination: No Hx Influenza Vaccination: No Hx Pneumococcal Vaccination: No - Home Medications Home Medications: Ambulatory Orders Medication Instructions Recorded Atenolol [Tenormin] 25 mg PO DAILY #30 12/31/16 Levothyroxine [Synthroid] 125 mcg PO DAILY #30 12/31/16 Divalproex [Depakote] 500 mg PO BID 06/23/17 QUEtiapine [Seroquel] 25 mg PO AMHS 06/23/17 Promethazine DM [Phenergan DM 5 ml PO Q6 PRN #4 oz 07/25/17 Syrup] Benzonatate 200 mg PO Q8H PRN 07/31/17 predniSONE [predniSONE Tab] 10 mg PO ASDIR 07/31/17 FLUoxetine [Prozac] 30 mg PO DAILY 30 Days #90 cap 08/06/17 QUEtiapine [SEROquel] 50 mg PO HS 30 Days #30 tab 08/06/17 guaiFENesin [Robitussin] 100 mg PO Q4 PRN udc 08/06/17 - Allergies Allergies/Adverse Reactions: Allergies Allergy/AdvReac Type Severity Reaction Status Date / Time No Known Allergies Allergy Verified 08/19/17 13:12 Review of Systems ROS Statement: Except As Marked, All Systems Reviewed And Found Negative Constitutional: Negative for: Fever, Chills Psych: Positive for: Anxiety. Negative for: Suicidal ideation, Withdrawal Physical Exam - Reviewed Nursing Documentation Reviewed: Yes Vital Signs Reviewed: Yes - Physical Exam Appears: Positive for: Well, Non-toxic, No Acute Distress Head Exam: Positive for: ATRAUMATIC, NORMAL INSPECTION, NORMOCEPHALIC Skin: Positive for: Normal Color, Warm, DRY Eye Exam: Positive for: Normal appearance ENT: Positive for: Normal ENT Inspection Neck: Positive for: Normal, Painless ROM Cardiovascular/Chest: Positive for: Regular Rate, Rhythm Respiratory: Positive for: Normal Breath Sounds. Negative for: Accessory Muscle Use, Respiratory Distress Gastrointestinal/Abdominal: Positive for: Normal Exam, Bowel Sounds, Soft. Negative for: Tenderness Back: Positive for: Normal Inspection Extremity: Positive for: Normal ROM Neurologic/Psych: Positive for: Alert - ECG O2 Sat by Pulse Oximetry: 99 Medical Decision Making Medical Decision Making: Pt evaluated by crisis. Disposition - Clinical Impression Clinical Impression: Anxiety - Patient ED Disposition Is Patient to be Admitted: No Counseled Patient/Family Regarding: Diagnosis, Need For Followup - Disposition Disposition: Routine/Home Disposition Time: 13:48 Condition: GOOD Instructions: Anxiety (ED)
[2017-08-19 14:23] VITALS: O2SAT 98
== END 2017-08-19 14:23 | disposition home or self-care (01) ==
LOC: H.ER 13:02
DX: F41.9 Anxiety disorder, unspecified (principal); E03.9 Hypothyroidism, unspecified; F20.9 Schizophrenia, unspecified; F32.9 Major depressive disorder, single episode, unspecified; I10 Essential (primary) hypertension

== ENCOUNTER 2017-08-27 12:31 | Emergency (ER) | payer MEDICAID ==
[2017-08-27 12:32] VITALS: BMI 38.1
[2017-08-27 12:40] VITALS: BP 131/75; PULSE 87; RESP 16; TEMP 98.9; O2SAT 100
--- NOTE | 2017-08-27 13:14 | ED PDOC ---
HPI: Psych/Substance Abuse Time Seen by Provider: 08/27/17 12:42 Chief Complaint (Nursing): Psychiatric Evaluation Chief Complaint (Provider): Psychiatric Evaluation History Per: Patient, EMS History/Exam Limitations: no limitations Onset/Duration Of Symptoms: Days Current Symptoms Are (Timing): Still Present Associated Symptoms: denies: Suicidal Thoughts Additional Complaint(s): Keisha is a 37 year old female, who was brought by EMS, to the emergency department for psychiatric evaluation. Patient is well-known to ED staffers. Patient generally presents with anxiety and states "something is going to happen to me" since this morning. Patient states she is out of her Ativan and has an appointment with a psychiatrist on September 16. Denies homicidal, suicidal ideations. PMD: Oscar Thacker Past Medical History Reviewed: Historical Data, Nursing Documentation, Vital Signs Vital Signs: Last Vital Signs Temp 98.9 F 08/27/17 12:37 Pulse 87 08/27/17 12:37 Resp 16 08/27/17 12:37 BP 131/75 08/27/17 12:37 Pulse Ox 100 08/27/17 12:37 - Medical History PMH: Anxiety, Bronchitis (allegedly is coughing secondary to bronchitis), Depression, HTN, Hypothyroidism, Schizophrenia Denies: Diabetes, Hepatitis, HIV, Chronic Kidney Disease, Seizures, Sexually Transmitted Disease - Family History Family History: States: Unknown Family Hx - Immunization History Hx Tetanus Toxoid Vaccination: No Hx Influenza Vaccination: No Hx Pneumococcal Vaccination: No - Home Medications Home Medications: Ambulatory Orders Medication Instructions Recorded Atenolol [Tenormin] 25 mg PO DAILY #30 12/31/16 Levothyroxine [Synthroid] 125 mcg PO DAILY #30 12/31/16 Divalproex [Depakote] 500 mg PO BID 06/23/17 QUEtiapine [Seroquel] 25 mg PO AMHS 06/23/17 Promethazine DM [Phenergan DM 5 ml PO Q6 PRN #4 oz 07/25/17 Syrup] Benzonatate 200 mg PO Q8H PRN 07/31/17 predniSONE [predniSONE Tab] 10 mg PO ASDIR 07/31/17 FLUoxetine [Prozac] 30 mg PO DAILY 30 Days #90 cap 08/06/17 QUEtiapine [SEROquel] 50 mg PO HS 30 Days #30 tab 12/13/17 guaiFENesin [Robitussin] 100 mg PO Q4 PRN c 08/06/17 - Allergies Allergies/Adverse Reactions: Allergies Allergy/AdvReac Type Severity Reaction Status Date / Time No Known Allergies Allergy Verified 08/27/17 12:37 Review of Systems ROS Statement: Except As Marked, All Systems Reviewed And Found Negative Psych: Negative for: Suicidal ideation, Other (Homicidal ideation) Physical Exam - Reviewed Nursing Documentation Reviewed: Yes Vital Signs Reviewed: Yes - Physical Exam Appears: Positive for: Non-toxic Head Exam: Positive for: NORMAL INSPECTION Skin: Positive for: Normal Color Eye Exam: Positive for: Normal appearance ENT: Positive for: Normal ENT Inspection Neck: Positive for: Normal Cardiovascular/Chest: Positive for: Regular Rate, Rhythm Respiratory: Positive for: Normal Breath Sounds. Negative for: Respiratory Distress Gastrointestinal/Abdominal: Positive for: Normal Exam Back: Positive for: Normal Inspection Extremity: Positive for: Normal ROM - ECG O2 Sat by Pulse Oximetry: 100 (RA) Pulse Ox Interpretation: Normal Medical Decision Making Medical Decision Making: Time: 12:51 Plan: - Crisis Evaluation - Ativan 1 mg PO STAT See crisis eval notes. Scribe Attestation: Documented by Aguilar Gr, acting as a scribe for DAI Fernandes Provider Scribe Attestation: All medical record entries made by the Scribe were at my direction and personally dictated by me. I have reviewed the chart and agree that the record accurately reflects my personal performance of the history, physical exam, medical decision making, and the department course for this patient. I have also personally directed, reviewed, and agree with the discharge instructions and disposition. Disposition - Clinical Impression Clinical Impression: Anxiety - Patient ED Disposition Is Patient to be Admitted: No - Disposition Disposition: Routine/Home Disposition Time: 14:17 Condition: STABLE Instructions: Anxiety (ED) Forms: [employer] (Hong Konger)
== END 2017-08-27 14:34 | disposition home or self-care (01) ==
LOC: H.ER 12:31
DX: F41.9 Anxiety disorder, unspecified (principal); E03.9 Hypothyroidism, unspecified; F20.9 Schizophrenia, unspecified; F32.9 Major depressive disorder, single episode, unspecified; I10 Essential (primary) hypertension

== ENCOUNTER 2017-09-09 16:23 | Emergency (ER) | payer MEDICAID ==
[2017-09-09 16:23] VITALS: BMI 38.1
--- NOTE | 2017-09-09 16:46 | ED PDOC ---
HPI: Psych/Substance Abuse Time Seen by Provider: 09/09/17 16:34 Chief Complaint (Nursing): Psychiatric Evaluation Chief Complaint (Provider): Crisis eval Additional Complaint(s): Keisha is a 37 year old female, who was brought by EMS, to the emergency department for psychiatric evaluation. Patient is well-known to ED staffers. Patient generally presents with anxiety and states "something is going to happen to me" since this morning. Patient states she is out of her Ativan and has an appointment with a psychiatrist on September 16. Denies homicidal, suicidal ideations. PMD: Oscar Thacker Past Medical History Reviewed: Historical Data, Nursing Documentation, Vital Signs - Medical History PMH: Anxiety, Bronchitis (allegedly is coughing secondary to bronchitis), Depression, HTN, Hypothyroidism, Schizophrenia Denies: Diabetes, Hepatitis, HIV, Chronic Kidney Disease, Seizures, Sexually Transmitted Disease - Family History Family History: States: Unknown Family Hx - Social History Current smoker - smoking cessation education provided: No Alcohol: None Drugs: Denies - Immunization History Hx Tetanus Toxoid Vaccination: No Hx Influenza Vaccination: No Hx Pneumococcal Vaccination: No - Home Medications Home Medications: Ambulatory Orders Medication Instructions Recorded Atenolol [Tenormin] 25 mg PO DAILY #30 12/31/16 Levothyroxine [Synthroid] 125 mcg PO DAILY #30 12/31/16 Divalproex [Depakote] 500 mg PO BID 06/23/17 QUEtiapine [Seroquel] 25 mg PO AMHS 06/23/17 Promethazine DM [Phenergan DM 5 ml PO Q6 PRN #4 oz 07/25/17 Syrup] Benzonatate 200 mg PO Q8H PRN 07/31/17 predniSONE [predniSONE Tab] 10 mg PO ASDIR 07/31/17 FLUoxetine [Prozac] 30 mg PO DAILY 30 Days #90 cap 08/06/17 QUEtiapine [SEROquel] 50 mg PO HS 30 Days #30 tab 08/06/17 guaiFENesin [Robitussin] 100 mg PO Q4 PRN udc 08/06/17 - Allergies Allergies/Adverse Reactions: Allergies Allergy/AdvReac Type Severity Reaction Status Date / Time No Known Allergies Allergy Verified 08/27/17 12:37 Review of Systems ROS Statement: Except As Marked, All Systems Reviewed And Found Negative Psych: Positive for: Anxiety Physical Exam - Reviewed Nursing Documentation Reviewed: Yes Vital Signs Reviewed: Yes - Physical Exam Appears: Positive for: Well, Non-toxic, No Acute Distress Head Exam: Positive for: ATRAUMATIC, NORMAL INSPECTION, NORMOCEPHALIC Skin: Positive for: Normal Color, Warm, DRY Eye Exam: Positive for: EOMI, Normal appearance, PERRL ENT: Positive for: Normal ENT Inspection Neck: Positive for: Normal, Painless ROM Cardiovascular/Chest: Positive for: Regular Rate, Rhythm Respiratory: Positive for: CNT, Normal Breath Sounds Gastrointestinal/Abdominal: Positive for: Normal Exam, Bowel Sounds, Soft Back: Positive for: Normal Inspection Extremity: Positive for: Normal ROM Neurologic/Psych: Positive for: Alert, Oriented Medical Decision Making Medical Decision Making: Pt administered 1 tab Ativan PO Doing well after medication given, reports feeling improved. Pt underwent crisis eval, see notes. Disposition - Clinical Impression Clinical Impression: Anxiety - Patient ED Disposition Is Patient to be Admitted: No - Disposition Disposition: Routine/Home Disposition Time: 17:00 Condition: STABLE Instructions: Anxiety (ED) Forms: [facility] (Georgian)
== END 2017-09-09 18:20 | disposition home or self-care (01) ==
LOC: H.ER 16:23
DX: F41.9 Anxiety disorder, unspecified (principal); I10 Essential (primary) hypertension; F20.9 Schizophrenia, unspecified; E03.9 Hypothyroidism, unspecified

== ENCOUNTER 2017-09-25 14:35 | Emergency (ER) | payer MEDICAID ==
[2017-09-25 14:35] VITALS: BMI 38.1
[2017-09-25 14:37] VITALS: BP 128/70; PULSE 95; RESP 18; TEMP 98; O2SAT 98
--- NOTE | 2017-09-25 15:30 | ED PDOC ---
HPI: Psych/Substance Abuse Time Seen by Provider: 09/25/17 14:39 Chief Complaint (Nursing): Psychiatric Evaluation Chief Complaint (Provider): Psychiatric Evaluation History Per: Patient History/Exam Limitations: no limitations Onset/Duration Of Symptoms: Days (x1) Current Symptoms Are (Timing): Still Present Additional History Per: Law Enforcement Additional Complaint(s): Keisha Tripathi is a 37 y/o female brought to the emergency department by Katty GIMENEZ for psychiatric evaluation. Patient was found crying outside [facility] and brought to ED for further evaluation. Patient is well known to ED. Currently she complains of feeling very anxious. States she took her Prozac this morning, but it is not working. Also reports having thoughts of cutting wrists to control her anxiety. PMD: Dr. Indio Chambers Past Medical History Reviewed: Historical Data, Nursing Documentation, Vital Signs Vital Signs: Last Vital Signs Temp 98 F 09/25/17 14:36 Pulse 95 H 09/25/17 14:36 Resp 18 09/25/17 14:36 BP 128/70 09/25/17 14:36 Pulse Ox 98 09/25/17 14:36 - Medical History PMH: Anxiety, Bronchitis (allegedly is coughing secondary to bronchitis), Depression, HTN, Hypothyroidism, Schizophrenia Denies: Diabetes, Hepatitis, HIV, Chronic Kidney Disease, Seizures, Sexually Transmitted Disease - Family History Family History: States: Unknown Family Hx - Immunization History Hx Tetanus Toxoid Vaccination: No Hx Influenza Vaccination: No Hx Pneumococcal Vaccination: No - Home Medications Home Medications: Ambulatory Orders Medication Instructions Recorded Atenolol [Tenormin] 25 mg PO DAILY #30 12/31/16 Levothyroxine [Synthroid] 125 mcg PO DAILY #30 12/31/16 Divalproex [Depakote] 500 mg PO BID 06/23/17 QUEtiapine [Seroquel] 25 mg PO AMHS 06/23/17 Promethazine DM [Phenergan DM 5 ml PO Q6 PRN #4 oz 07/25/17 Syrup] Benzonatate 200 mg PO Q8H PRN 07/31/17 predniSONE [predniSONE Tab] 10 mg PO ASDIR 07/31/17 FLUoxetine [Prozac] 30 mg PO DAILY 30 Days #90 cap 08/06/17 QUEtiapine [SEROquel] 50 mg PO HS 30 Days #30 tab 08/06/17 guaiFENesin [Robitussin] 100 mg PO Q4 PRN [facility] [place] 08/06/17 - Allergies Allergies/Adverse Reactions: Allergies Allergy/AdvReac Type Severity Reaction Status Date / Time No Known Allergies Allergy Verified 08/27/17 12:37 Review of Systems ROS Statement: Except As Marked, All Systems Reviewed And Found Negative Psych: Positive for: Anxiety, Suicidal ideation Physical Exam - Reviewed Nursing Documentation Reviewed: Yes Vital Signs Reviewed: Yes - Physical Exam Appears: Positive for: Non-toxic, No Acute Distress Head Exam: Positive for: ATRAUMATIC, NORMAL INSPECTION, NORMOCEPHALIC Skin: Positive for: Normal Color, Warm, Dry Eye Exam: Positive for: EOMI, Normal appearance, PERRL Neck: Positive for: Normal, Painless ROM Cardiovascular/Chest: Positive for: Regular Rate, Rhythm. Negative for: Murmur Respiratory: Positive for: Normal Breath Sounds. Negative for: Accessory Muscle Use, Respiratory Distress Gastrointestinal/Abdominal: Positive for: Normal Exam, Soft. Negative for: Tenderness Extremity: Positive for: Normal ROM. Negative for: Pedal Edema, Deformity Neurologic/Psych: Positive for: Alert, Oriented, Mood/Affect (crying on exam, but cooperative) - ECG O2 Sat by Pulse Oximetry: 98 (RA) Pulse Ox Interpretation: Normal - Progress ED Course And Treament: Crisis evaluation ordered. Pt placed on 1:1. Pt. evaluated by crisis and cleared pt. for discharge. Medical Decision Making Medical Decision Making: Initial Impression: Psychiatric evaluation Time: 14:59 Initial Plan: * ED Urine * Urine drug screen * Ativan 1mg PO * Placed on 1:1 observation * Pending crisis evaluation Scribe Attestation: Documented by Mely More, acting as a scribe for Kristofer Arenas PA-C Provider Scribe Attestation: All medical record entries made by the Scribe were at my direction and personally dictated by me. I have reviewed the chart and agree that the record accurately reflects my personal performance of the history, physical exam, medical decision making, and the department course for this patient. I have also personally directed, reviewed, and agree with the discharge instructions and disposition. Disposition - Clinical Impression Clinical Impression: Anxiety - Patient ED Disposition Is Patient to be Admitted: No - Disposition Disposition: Routine/Home Disposition Time: 17:57 Condition: IMPROVED Instructions: Anxiety (ED) Forms: [employer] (Syriac)
[2017-09-25 16:11] LABS: BARBITURATES, UR NEGATIVE (NEGATIVE); BENZODIAZEPINES, UR NEGATIVE (NEGATIVE); OPIATES, UR NEGATIVE (NEGATIVE); PHENCYCLIDINE, UR NEGATIVE (NEGATIVE)
== END 2017-09-25 18:35 | disposition home or self-care (01) ==
LOC: H.ER 14:35
DX: F41.9 Anxiety disorder, unspecified (principal); E03.9 Hypothyroidism, unspecified; F20.9 Schizophrenia, unspecified; F32.9 Major depressive disorder, single episode, unspecified; I10 Essential (primary) hypertension

== ENCOUNTER 2018-09-01 17:31 | Emergency (ER) | payer MEDICAID ==
[2018-09-01 17:33] VITALS: RESP 18; BMI 32.9
--- NOTE | 2018-09-01 18:25 | ED PDOC ---
HPI: Psych/Substance Abuse Time Seen by Provider: 09/01/18 17:53 Chief Complaint (Nursing): Psychiatric Evaluation Chief Complaint (Provider): Psychiatric Evaluation History Per: Patient History/Exam Limitations: no limitations Onset/Duration Of Symptoms: Waxing/Waning Current Symptoms Are (Timing): Still Present Suicide/Self Injury Attempted (Context): None Modifying Factor(s): None Associated Symptoms: Anxiety Additional Complaint(s): 38 y/o female with a PMHx of depression presents to the ED for evaluation of a panic attack. Patient states she was at a nail salon, getting her nails done when she started to have a panic attack. Patient reports of hyperventilating, crying and feeling very anxious. Patient states she has had similar episodes in the past. Patient is now requesting medications to calm down. Otherwise, patient denies chest pain and shortness of breath. PMD: Oscar Thacker Past Medical History Reviewed: Historical Data, Nursing Documentation, Vital Signs Vital Signs: Last Vital Signs Temp 98.3 F 09/01/18 17:33 Pulse 102 H 09/01/18 17:33 Resp 18 09/01/18 17:33 BP 147/109 H 09/01/18 17:33 Pulse Ox 99 09/01/18 17:33 - Medical History PMH: Anxiety, Bronchitis (allegedly is coughing secondary to bronchitis), Depression, HTN, Hypothyroidism, Schizophrenia Denies: Diabetes, Hepatitis, HIV, Chronic Kidney Disease, Seizures, Sexually Transmitted Disease - Surgical History Surgical History: No Surg Hx - Family History Family History: States: Unknown Family Hx - Immunization History Hx Tetanus Toxoid Vaccination: No Hx Influenza Vaccination: No Hx Pneumococcal Vaccination: No - Home Medications Home Medications: Ambulatory Orders Medication Instructions Recorded Atenolol [Tenormin] 25 mg PO DAILY #30 12/31/16 Levothyroxine [Synthroid] 125 mcg PO DAILY #30 12/31/16 Divalproex [Depakote] 500 mg PO BID 06/23/17 QUEtiapine [Seroquel] 25 mg PO AMHS 06/23/17 Promethazine DM [Phenergan DM 5 ml PO Q6 PRN #4 oz 07/25/17 Syrup] Benzonatate 200 mg PO Q8H PRN 07/31/17 predniSONE [predniSONE Tab] 10 mg PO ASDIR 07/31/17 FLUoxetine [Prozac] 30 mg PO DAILY 30 Days #90 cap 08/06/17 QUEtiapine [SEROquel] 50 mg PO HS 30 Days #30 tab 08/06/17 guaiFENesin [Robitussin] 100 mg PO Q4 PRN ud[facility] 08/06/17 - Allergies Allergies/Adverse Reactions: Allergies Allergy/AdvReac Type Severity Reaction Status Date / Time No Known Allergies Allergy Verified 09/01/18 17:33 Review of Systems ROS Statement: Except As Marked, All Systems Reviewed And Found Negative Cardiovascular: Negative for: Chest Pain Respiratory: Negative for: Shortness of Breath Psych: Positive for: Anxiety, Other (Panic Attack) Physical Exam - Reviewed Nursing Documentation Reviewed: Yes Vital Signs Reviewed: Yes - Physical Exam Appears: Positive for: No Acute Distress (Anxious and crying but consolable du ring interview) Head Exam: Positive for: ATRAUMATIC Skin: Positive for: Normal Color, Warm, Dry Eye Exam: Positive for: Normal appearance, EOMI, PERRL Neck: Positive for: Normal, Painless ROM Cardiovascular/Chest: Positive for: Regular Rate, Rhythm. Negative for: Bradycardia, Tachycardia Respiratory: Positive for: Normal Breath Sounds. Negative for: Accessory Muscle Use, Respiratory Distress Extremity: Positive for: Normal ROM Neurologic/Psych: Positive for: Alert, Oriented. Negative for: Motor/Sensory Deficits - ECG O2 Sat by Pulse Oximetry: 99 (RA) Pulse Ox Interpretation: Normal - Progress Re-evaluation Time: 18:56 Condition: Re-examined, Improved Medical Decision Making Medical Decision Making: Time: 1806 Impression: Panic Attack and Anxiety Disorder Plan: -- Crisis Evaluation -- Ativan 1 mg PO Time: 1826 -- Patient evaluated by pastoral worker. Patient is stable for discharge as per Dr. Diaz Scribe Attestation: Documented by Boyd Ritchie, acting as a scribe for Susie Keys MD. Provider Scribe Attestation: All medical record entries made by the Scribe were at my direction and personandrea [email or web address] dictated by me. I have reviewed the chart and agree that the record accurately reflects my personal performance of the history, physical exam, medical decision making, and the department course for this patient. I have also personally directed, reviewed, and agree with the discharge instructions and disposition. Disposition - Clinical Impression Clinical Impression: Anxiety - Patient ED Disposition Is Patient to be Admitted: No Doctor Will See Patient In The: Office Counseled Patient/Family Regarding: Studies Performed, Diagnosis, Need For Followup - Disposition Referrals: [facility] [Outside] Disposition: Routine/Home Disposition Time: 18:56 Condition: GOOD Additional Instructions: SHANI HUGGINS, thank you for letting us take care of you today. Your provider was Susie Keys MD and you were treated for ANXIETY. The emergency medical care you received today was directed at your acute symptoms. If you were prescribed any medication, please fill it and take as directed. It may take several days for your symptoms to resolve. Return to the Emergency Department if your symptoms worsen, do not improve, or if you have any other problems. Please contact your doctor or call one of the physicians/clinics you have been referred to that are listed on the Patient Visit Information form that is included in your discharge packet. Bring any paperwork you were given at discharge with you along with any medications you are taking to your follow up visit. Our treatment cannot replace ongoing medical care by a primary care provider outside of the emergency department. Thank you for allowing the [facility] team to be part of your care today. If you had an X-Ray or CT scan: A Radiologist will review the ED reading if any change in treatment is needed we will contact you. If you had a blood, urine, or wound culture: It will take several days for the results, if any change in treatment is needed we will contact you. If you had an STI test: It will take 48 hours for the results. Please call after 1 week if you have not heard back. Instructions: Anxiety, Adult (DC) Print Language: LATVIAN
[2018-09-02 13:38] VITALS: BP 132/84; PULSE 88; TEMP 98; O2SAT 100
== END 2018-09-01 19:00 | disposition home or self-care (01) ==
LOC: H.ER 17:31
DX: F41.0 Panic disorder [episodic paroxysmal anxiety] (principal); E03.9 Hypothyroidism, unspecified; F20.9 Schizophrenia, unspecified; F32.9 Major depressive disorder, single episode, unspecified; I10 Essential (primary) hypertension

== ENCOUNTER 2018-09-22 14:01 | Emergency (ER) | payer MEDICAID ==
[2018-09-22 14:01] VITALS: BMI 32.9
[2018-09-22 14:05] VITALS: BP 131/76; PULSE 94; RESP 16; TEMP 98; O2SAT 99
--- NOTE | 2018-09-22 14:30 | ED PDOC ---
HPI: Psych/Substance Abuse Time Seen by Provider: 09/22/18 14:19 Chief Complaint (Nursing): Anxiety Chief Complaint (Provider): Anxiety History Per: Patient History/Exam Limitations: no limitations Onset/Duration Of Symptoms: Hrs (beginning earlier today) Current Symptoms Are (Timing): Still Present Additional Complaint(s): 38 year old female well known to ED staff with history of anxiety and depression presents to the ED for evaluation of feeling anxious onset earlier today. 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 Denies suicidal / homicidal ideation, and visual / auditory hallucinations. PMD: Oscar Thacker Past Medical History Reviewed: Historical Data, Nursing Documentation, Vital Signs Vital Signs: Last Vital Signs Temp 98.0 F 09/22/18 14:03 Pulse 94 H 09/22/18 14:03 Resp 16 09/22/18 14:03 BP 131/76 09/22/18 14:03 Pulse Ox 99 09/22/18 14:03 - Medical History PMH: Anxiety, Bronchitis (allegedly is coughing secondary to bronchitis), Depression, HTN, Hypothyroidism, Schizophrenia Denies: Diabetes, Hepatitis, HIV, Chronic Kidney Disease, Seizures, Sexually Transmitted Disease - Surgical History Surgical History: No Surg Hx - Family History Family History: States: Unknown Family Hx - Immunization History Hx Tetanus Toxoid Vaccination: No Hx Influenza Vaccination: No Hx Pneumococcal Vaccination: No - Home Medications Home Medications: Ambulatory Orders Medication Instructions Recorded RX: Atenolol [Tenormin] 25 mg PO DAILY #30 12/31/16 RX: Levothyroxine [Synthroid] 125 mcg PO DAILY #30 12/31/16 Divalproex [Depakote] 500 mg PO BID 06/23/17 RX: QUEtiapine [Seroquel] 25 mg PO AMHS 06/23/17 RX: Promethazine DM [Phenergan DM 5 ml PO Q6 PRN #4 oz 07/25/17 Syrup] RX: Benzonatate 200 mg PO Q8H PRN 07/31/17 RX: predniSONE [predniSONE Tab] 10 mg PO ASDIR 07/31/17 RX: FLUoxetine [Prozac] 30 mg PO DAILY 30 Days #90 cap 08/06/17 RX: QUEtiapine [SEROquel] 50 mg PO HS 30 Days #30 tab 08/06/17 RX: guaiFENesin [Robitussin] 100 mg PO Q[address] [facility] [place] 08/06/17 - Allergies Allergies/Adverse Reactions: Allergies Allergy/AdvReac Type Severity Reaction Status Date / Time haloperidol [From Haldol] Allergy RASH Verified 09/22/18 14:03 Review of Systems ROS Statement: Except As Marked, All Systems Reviewed And Found Negative Psych: Positive for: Anxiety. Negative for: Suicidal ideation (or homicidal ideation), Other (visual / auditory hallucinations) Physical Exam - Reviewed Nursing Documentation Reviewed: Yes Vital Signs Reviewed: Yes - Physical Exam Appears: Positive for: No Acute Distress Head Exam: Positive for: ATRAUMATIC, NORMOCEPHALIC Skin: Positive for: Normal Color. Negative for: Rash Eye Exam: Positive for: EOMI, Normal appearance, PERRL ENT: Positive for: Normal ENT Inspection Neck: Positive for: Normal, Painless ROM Cardiovascular/Chest: Positive for: Regular Rate, Rhythm Respiratory: Positive for: Normal Breath Sounds. Negative for: Respiratory Distress Gastrointestinal/Abdominal: Positive for: Normal Exam, Soft. Negative for: Tenderness Back: Positive for: Normal Inspection Extremity: Positive for: Normal ROM (all extremities) Neurologic/Psych: Positive for: Alert (and awake) - ECG O2 Sat by Pulse Oximetry: 99 (RA) Pulse Ox Interpretation: Normal Medical Decision Making Medical Decision Making: Time: 1420 Initial Impression: anxiety, psychiatric evaluation Initial Plan: --Crisis evaluation --EKG --Alcohol serum --CMP --Drug screen --U-preg --CBC with differential --Chest x-ray --Urinalysis 1540 Patient evaluated by boom stick worker and is psychiatrically cleared for discharge. Pt./Mother agreeable to plan for discharge with outpt. follow up. Scribe Attestation: Documented by Agatha Pugh, acting as a scribe for Miladis Rodriguez PA-C. Provider Scribe Attestation: All medical record entries made by the Scribe were at my direction and personally dictated by me. I have reviewed the chart and agree that the record accurately reflects my personal performance of the history, physical exam, medical decision making, and the department course for this patient. I have also personally directed, reviewed, and agree with the discharge instructions and disposition. Disposition - Clinical Impression Clinical Impression: Anxiety Counseled Patient/Family Regarding: Diagnosis, Need For Followup - Disposition Disposition: Routine/Home Disposition Time: 16:33 Condition: STABLE Instructions: Anxiety, Adult (DC) Forms: [facility] [facility] (Lao)
== END 2018-09-22 16:26 | disposition home or self-care (01) ==
LOC: H.ER 14:01
DX: F41.9 Anxiety disorder, unspecified (principal)